=== PATIENT | female | born 1950 ===

== ENCOUNTER → 2018-08-05 14:54 | Outpatient (CLI) | payer OTHER, SELFPAY ==
--- NOTE | 2018-08-05 | DI.MG.S_ITS ---
BILATERAL DIGITAL SCREENING MAMMOGRAM 3D/2D WITH CAD: 08/05/2018 CLINICAL: Routine screening. Comparison is made to exams dated: 03/06/2013 mammogram, 03/09/2010 mammogram, and 08/13/2008 mammogram - [facility]. The tissue of both breasts is heterogeneously dense. This may lower the sensitivity of mammography. Current study was also evaluated with a Computer Aided Detection (CAD) system. No significant masses, calcifications, or other findings are seen in either breast. There has been no significant interval change. IMPRESSION: NEGATIVE There is no mammographic evidence of malignancy. A 1 year screening mammogram is recommended. This exam was interpreted at Station ID: [id number]. NOTE: For mammograms, a report in lay terms will be sent to the patient. Approximately 15% of breast malignancies will not be visualized mammographically. In the management of a palpable breast mass, a negative mammogram must not discourage biopsy of a clinically suspicious lesion. Electronically Signed By: Donita aguayo/sae:08/05/2018 16:03:06 letter sent: Normal Exam ACR BI-RADS Category 1: Negative 3341F
== END ==
PROVIDERS: Family Provider Internal Medicine; PCP Internal Medicine; Visit Provider Internal Medicine
DX: Z12.31 Encounter for screening mammogram for malignant neoplasm of breast (principal)
CPT/HCPCS: 77063; 77067

== ENCOUNTER → 2018-08-27 10:48 | Outpatient (CLI) | payer OTHER, SELFPAY ==
[2018-08-27 12:14] LABS: Add Manual Diff / Slide Review NO; Basophils Percent Auto 1.2 % (0-2); Eosinophils Percent Auto 4.5 % (2-4); Hematocrit 38.5 % (36-46); Hemoglobin 12.8 g/dL (12.0-16.0); Lymphocytes Percent Auto 30.3 % (25-40); Mean Corpuscular HGB Conc 33.2 % (30-36); Mean Corpuscular Hemoglobin 28.8 PG (26-34); Mean Corpuscular Volume 86.6 fL (80-100); Monocytes Percent Auto 8.2 % (3-14); Neutrophils Absolute Auto 1800 /uL (3000-5900); Neutrophils Percent Auto 55.8 % (50-75); Platelet Count 187 X10^3/uL (150-400); Red Blood Cell Count 4.45 X10^6/uL (4.0-5.2); Red Cell Distribution Width 14.8 % (11.6-14.8); White Blood Cell Count 3.2 X10^3/uL (4.5-11.0)
[2018-08-27 12:26] LABS: Alanine Aminotransferase 32 IU/L (9-52); Aspartate Aminotransferase 28 IU/L (14-36); Cholesterol 182 mg/dL (140-199); HDL Cholesterol 80 mg/dL (40-60); LDL Cholesterol Calculated 89 mg/dL (<100); Triglycerides 63 mg/dL (35-150)
[2018-08-27 12:28] LABS: C-Reactive Protein Quant < 0.5 mg/dL (<1.0); Rheumatoid Factor < 8.6 IU/mL (<12.0)
[2018-08-27 12:42] LABS: Erythrocyte Sedimentation Rate 7 MM/HR (0-20)
[2018-09-03 23:05] LABS: ANA Screen NEGATIVE (Negative); DNA Antibody Crithidia IFA NEGATIVE (Negative); Rheumatoid Factor <14 IU/mL; Sjogren Antiboday SS-A <1.0 NEG AI (<1.0 NEGATIVE); Sjogren Antiboday SS-B <1.0 NEG AI (<1.0 NEGATIVE); Sm Antibody <1.0 NEG AI (<1.0 NEGATIVE); Sm/RNP Antibody <1.0 NEG AI (<1.0 NEGATIVE)
== END ==
PROVIDERS: Family Provider Internal Medicine; PCP Internal Medicine; Visit Provider Internal Medicine
DX: M25.50 Pain in unspecified joint (principal); E78.5 Hyperlipidemia, unspecified
CPT/HCPCS: 36415; 80061; 84450; 84460; 85025; 85651; 86038; 86140; 86430

== ENCOUNTER → 2018-09-23 08:37 | Outpatient (CLI) | payer OTHER, SELFPAY | PROVIDERS: Family Provider Internal Medicine; PCP Internal Medicine; Visit Provider Specialist | DX: N90.89 Other specified noninflammatory disorders of vulva and perineum (principal) | CPT/HCPCS: 87255 ==

== ENCOUNTER → 2018-10-11 11:11 | Outpatient (CLI) | payer OTHER, SELFPAY ==
--- NOTE | 2018-10-11 | DI.CT.S_ITS ---
PROCEDURE: CT ABDOMEN W CON INDICATIONS: Epigastric and right sided upper abdominal and flank pain TECHNIQUE: After the administration of intravenous contrast, 5 mm thick sections acquired from the diaphragm to the iliac crests. 5 mm coronal and sagittal reformats were performed. For radiation dose reduction, the following was used: automated exposure control, adjustment of mA and/or kV according to patient size. COMPARISON: None. FINDINGS: Image quality: Excellent. Lung bases: Lung bases are clear. Heart size is normal. There is a moderate-sized hiatal hernia behind the heart Solid organs: Liver is normal in size and enhancement. Gallbladder appears normal. Biliary system is non dilated. Pancreas enhances normally. Spleen is normal in size and enhancement. No adrenal nodules. Kidneys demonstrate normal size and enhancement, without hydronephrosis. Peritoneum and bowel: Bowel loops demonstrate normal wall thickness and caliber. Note is made of moderate diverticulosis at the hepatic flexure of the colon. There is a mild degree of fluid within the pericolonic mesenteric and retroperitoneal fat in this area consistent with mild or early diverticulitis. No peridiverticular fluid collection to suggest abscess formation is present. A mass lesion in this area is not found. No free fluid or air. Nodes and vessels: No retroperitoneal or mesenteric adenopathy by size criteria. Aorta and inferior vena cava are normal in size. Miscellaneous: No ventral hernias. IMPRESSION: Normal-appearing gallbladder, no hepatic or biliary ductal abnormality is seen. Rather, what appears to be mild right colonic acute diverticulitis is present, with mild pericolonic edema and no abnormal fluid collection at the hepatic flexure of the colon. Colonic diverticulosis in this area is moderate in severity. No alternative etiology for right upper quadrant pain is seen. Incidental note is made of a moderate-sized hiatal hernia behind heart. Dictated by: Doroteo Nayak M.D. on 10/11/2018 at 16:44 Approved by: Doroteo Nayak M.D. on 10/11/2018 at 16:47
== END ==
PROVIDERS: PCP Internal Medicine; Visit Provider Internal Medicine
DX: R10.13 Epigastric pain (principal); R10.11 Right upper quadrant pain; K57.30 Diverticulosis of large intestine without perforation or abscess without bleeding; K44.9 Diaphragmatic hernia without obstruction or gangrene
CPT/HCPCS: 74160; Q9967

== ENCOUNTER 2018-12-25 11:58 | Day surgery (SDC) | payer OTHER, SELFPAY ==
--- NOTE | 2018-12-25 | PATH_ITS ---
[facility] Accession Number: [id number] . 01 Material submitted: . PART A: GE JUNCTION BIOPSY PART B: RECTOSIGMOID POLYP . 01 Clinical history: . A) R/O MIGUEL'S . 02 Diagnosis: A. Gastroesophageal Junction, Biopsy: Squamocolumnar junctional mucosa with mild reactive features of reflux esophagitis. Negative for specialized intestinal metaplasia on alcian blue stain. Negative for fungal organisms on PAS stain. Negative for dysplasia or malignancy. . B. Rectosigmoid Colon, Polyp: Hyperplastic polyp. MRV/12/27/2018 . 02 Electronically signed: . Avinash Wallis MD, PhD, Pathologist NPI- [id number] . 01 Gross description: . Received two formalin-filled containers, both labeled with the patient's name: . A. In a container labeled GE junction, the specimen consists of a 0.1 cm portion of tissue, entirely submitted in cassette A. B. In a container labeled rectosigmoid polyp, the specimen consists of a 0.3 cm portion of tissue, entirely submitted in cassette B. (DC:[id number]) /FRR . 02 Microscopic: . Part A: An AB/PAS stain is performed to evaluate for specialized intestinal metaplasia and is negative for goblet cells. There are no fungal organisms identified. A control stain shows appropriate reactivity. . 02 Pathologist provided ICD-10: K21.0, K62.1 . 02 CPT . 327625, 324736, 999612 Performed at: 01 [facility] [address] [facility], [place], [place] [id number] MD Wolf Boucher MD Phone: [phone] Performed at: 02 [facility] [address] [place] [id number] MD Dolly Allison MD Phone: [phone]
--- NOTE | 2018-12-25 08:20 | PM.HP.1 ---
History of Present Illness Date Patient Seen: 12/25/18 Chief complaint: Colonoscopy/EGD Narrative: 68-year-old female who was seen at our office on November 07, 2018 for follow-up after having a bout of hepatic flexure diverticulitis and having persistent right flank pain. The patient also has a history of heartburn has never undergone an upper endoscopy. Please refer to our office note November 07, 2018 for further details Patient History Surgical History History of knee replacement (Resolved 03/09/15) Family History Father No problems noted. Grandmother No problems noted. Mother Infection Grandfather Heart problem Grandmother Heart problem Family/Other Surgical complication Family/Other Cancer Family/Other Cancer Family/Other Cancer Family/Other No problems noted. Social History household members: spouse Smoking Status: Never smoker Family & Social History Family History Father No problems noted. Grandmother No problems noted. Mother Infection Grandfather Heart problem Grandmother Heart problem Family/Other Surgical complication Family/Other Cancer Family/Other Cancer Family/Other Cancer Family/Other No problems noted. Tobacco & Substance use: Smoking Status Never smoker Meds Home Medications Medication Instructions Recorded Confirmed Type [CALCIUM] Q DAY #0 04/28/13 09/23/18 History acyclovir [Zovirax] 200 mg PO SEE INSTRUCTIONS #25 cap 12/28/17 12/25/18 Rx atorvastatin 20 mg tablet 20 mg PO DAILY 05/09/18 12/25/18 History estradiol vaginal pearls 25 mcg VAG 2XW #10 05/09/18 09/23/18 Rx valacyclovir 500 mg tablet 500 mg PO BID #6 tab 10/07/18 Rx Allergies Allergy/AdvReac Type Severity Reaction Status Date / Time cephalexin [From KEFLEX] Allergy Unknown vomit Verified 12/25/18 12:20 Sulfa (Sulfonamide Allergy Unknown Rash Verified 12/25/18 12:20 Antibiotics) [SULFA (SULFONAMIDE ANTIBIOTICS)] Exam Narrative Exam Narrative: General: Patient is obese, not in apparent distress Cardiovascular: Regular rate and rhythm, no murmurs, rubs, or gallops; no evidence of edema; no palpable abdominal aortic aneurysm Gastrointestinal: Normoactive bowel sounds, soft, nontender, nondistended, no rebound tenderness, no hepatosplenomegaly, no evidence of hernia Assessment & Plan Assessment & Plan narrative: 68-year-old female with a history of heartburn here for upper endoscopy and right flank pain after having a bout of diverticulitis who is here for further evaluation by means of colonoscopy Regarding the procedure(s), the risks and potential complications, benefits, and alternatives (including not doing the procedure) were discussed with the patient. The risks include but are not limited to bleeding, splenic injury, infection, perforation which may require surgical intervention, missed lesions, and adverse reactions to sedative medicines. After a question and answer period, the patient agreed to proceed with the procedure(s) and gives informed consent.
[2018-12-25 12:22] VITALS: BP 127/78; PULSE 70; RESP 16; TEMP 36.4; O2SAT 100
[2018-12-25] MEDS: SODIUM CHLORIDE 0.9% 1,000 ML 70 ML IV (12:49)
--- NOTE | 2018-12-25 12:59 | PM.OP.ENDO ---
Operative Date/Time/Diagnoses Date of procedure: 12/25/18 Procedure Notes Procedure in detail: Surgeon: Jarret Rodriguez MD Procedure: Esophagogastroduodenoscopy with biopsy and colonoscopy with snare polypectomy Preoperative diagnosis: Heartburn, history of diverticulitis Postoperative diagnosis: LA grade A reflux esophagitis, 3 cm hiatal hernia; pandiverticulosis; rectosigmoid polyp status post polypectomy Medications: Conscious sedation using 5 mg IV of Midazolam and 100 mcg IV of Fentanyl for EGD; 6 mg IV of Midazolam and 150 mcg IV of Fentanyl (total for both procedures) Preanesthesia Assessment An H and P was performed/updated and the Px?s ASA class is 2. The procedure was discussed in detail with the patient. The potential risks and complications including infection, bleeding, missed lesions, perforation, need for surgery in case of perforation, prolonged hospital stay, and were explained. A brief question and answer period was allotted and once all questions were answered, informed consent was obtained. The patient was brought back to the procedure room and placed on standard monitoring. The patient?s vital signs were monitored continuously throughout the entire procedure. Prior to starting, a timeout was performed to confirm the patient?s identity, allergies, medications, and procedure. Procedure in detail The patient was placed in left lateral decubitus position and a bite block was inserted. The tip of the upper endoscope was placed into the mouth and advanced without difficulty under direct visualization into the esophagus. Esophagus: There is note of LA grade A reflux esophagitis. A biopsy was taken to rule out any Pugh's esophagus and there was self limited minimal bleeding after biopsy Stomach: A 3 cm hiatal hernia was seen on retroflexion; the stomach otherwise appeared normal Duodenum: The visualized mucosa appeared normal up to the 2nd portion of the duodenum After the upper endoscopy, preparations were made for the colonoscopy. Once adequate sedation was obtained a BRYON was performed. The digital rectal examination did not reveal any palpable lesions. The tip of the colonoscope was placed in the anal canal and advanced without difficulty all the way to the cecum which was identified by the appendiceal orifice and the ileocecal valve. There is note of multiple medium-sized diverticula throughout the entire colon. The largest concentration was in the sigmoid colon. In the rectosigmoid colon there was note of a 4 mm sessile polyp which was removed by means of cold snare. Resection and retrieval were complete with minimal bleeding. Retroflexion was performed in the rectum which revealed no abnormalities The patient tolerated the procedure well and will be brought back to the recovery area to be discharged once criteria are met. The prep was judged to be good/excellent and adequate to identify polyps less than 5 mm. The withdrawal time was 7 min. The total physician intraservice time was 24 min. Complications There were no complications and estimated blood loss was minimal. Recommendations Resume previous diet Anti-reflux measures at all times Continue outpatient medications Follow-up pathology results Repeat colonoscopy in 5 or 10 years depending on pathology results Follow-up at our office with Ioana Shea in 1-2 months An emergency contact number was given to the patient for any complications related to the procedure
--- NOTE | 2018-12-25 13:01 | SUR.OPER ---
GLASSES IN LABELED BAG TO PACU WITH PATIENT.
[2018-12-25] MEDS: fentaNYL 250 MCG/5 ML INJ IV (13:15)
[2018-12-25] MEDS: MIDAZOLAM 5 MG/5 ML VIAL IV (13:15)
[2018-12-25 13:27] VITALS: BP 108/66; PULSE 64; RESP 14; O2SAT 96
--- NOTE | 2018-12-25 13:27 | PM.DS.1 ---
History of Present Illness Chief complaint: Colonoscopy/EGD Narrative: 68-year-old female who was seen at our office on November 07, 2018 for follow-up after having a bout of hepatic flexure diverticulitis and having persistent right flank pain. The patient also has a history of heartburn has never undergone an upper endoscopy. Please refer to our office note November 07, 2018 for further details Discharge Providers Discharge Date: 12/25/18 Primary care physician: Enriqueta Espinal MD Discharge provider: Jarret Rodriguez MD Exam Vital Signs (past 8 hours): - 12/25/18 12:22 Temperature 97.6 F Pulse Rate 70 Respiratory Rate 16 Blood Pressure 127/78 Pulse Oximetry 100 Oxygen Delivery Method Room Air Narrative Exam Narrative: General: Patient is obese, not in apparent distress Cardiovascular: Regular rate and rhythm, no murmurs, rubs, or gallops; no evidence of edema; no palpable abdominal aortic aneurysm Gastrointestinal: Normoactive bowel sounds, soft, nontender, nondistended, no rebound tenderness, no hepatosplenomegaly, no evidence of hernia Discharge Plan Discharge Plan Patient Disposition: Home Discharge Med Rec/Prescriptions Prescriptions: Continued [CALCIUM] Q DAY Qty: 0 RF: 0 acyclovir [Zovirax] 200 MG capsule 200 mg PO SEE INSTRUCTIONS Qty: 25 RF: 3 valacyclovir 500 mg tablet 500 mg PO BID Qty: 6 RF: 3 atorvastatin 20 mg tablet 20 mg PO DAILY RF: 0 estradiol vaginal pearls 25 mcg VAG 2XW Qty: 10 RF: 0 Follow up/Referrals: Enriqueta Espinal MD [Primary Care Provider] - Discharge Orders: Discharge (Order); Ordered 12/25/18 Ordered By: Jarret Rodriguez Provider Discharge Instructions Diet: Diet as Tolerated Visit Report/Discharge Packet Stand Alone Forms: Colonoscopy Result: [facility], EGD Result: [facility] Discharge Data Primary Care Provider: Enriqueta Espinal Attending Provider: Jarret Rodriguez
[2018-12-25 13:32] VITALS: BP 107/66; PULSE 63; RESP 13; O2SAT 98
[2018-12-25 13:38] VITALS: BP 114/73; PULSE 65; RESP 14; O2SAT 98
[2018-12-25 13:46] VITALS: BP 116/72; PULSE 72; RESP 15; TEMP 36.3; O2SAT 97
[2018-12-25 13:47] VITALS: BP 116/72; PULSE 72; RESP 15; TEMP 36.3; O2SAT 97
--- NOTE | 2018-12-25 14:08 | SUR.PHASEII ---
stable phase 2 pt dressed when ready and left when ready and in stable condition.
== END 2018-12-25 14:00 | disposition home or self-care (01) ==
PROVIDERS: PCP Internal Medicine; Visit Provider Internal Medicine Gastroenterology
PROC: 0DJ08ZZ Inspection of Upper Intestinal Tract, Via Natural or Artificial Opening Endoscopic (ICD-10-PCS; CPT 43235; 2018-12-25 13:00)
PROC: 0DJD8ZZ Inspection of Lower Intestinal Tract, Via Natural or Artificial Opening Endoscopic (ICD-10-PCS; CPT 45378; 2018-12-25 13:00)
DX: Z87.19 Personal history of other diseases of the digestive system (principal); R12 Heartburn; K21.0 Gastro-esophageal reflux disease with esophagitis; K44.9 Diaphragmatic hernia without obstruction or gangrene; D12.8 Benign neoplasm of rectum; K57.30 Diverticulosis of large intestine without perforation or abscess without bleeding; K62.1 Rectal polyp
CPT/HCPCS: 45385; 43239; J2250; J3010

== ENCOUNTER → 2019-01-24 16:47 | Outpatient (CLI) | payer OTHER, SELFPAY | PROVIDERS: PCP Internal Medicine; Visit Provider Specialist | DX: R30.0 Dysuria (principal) | CPT/HCPCS: 87077; 87086 ==

== ENCOUNTER → 2019-09-11 11:53 | Outpatient (CLI) | payer OTHER, SELFPAY ==
[2019-09-11 13:09] LABS: Alanine Aminotransferase 15 IU/L (<35); Albumin 4.4 g/dL (3.5-5.0); Albumin Globulin Ratio 1.6 (1.0-2.8); Alkaline Phosphatase 73 U/L (38-126); Aspartate Aminotransferase 26 IU/L (14-36); BUN Creatinine Ratio 21.4 (6-22); Bilirubin Total 0.6 mg/dL (0.2-1.3); Blood Urea Nitrogen 15 mg/dL (7-17); Calcium 8.9 mg/dL (8.4-10.2); Carbon Dioxide 31 mmol/L (22-32); Chloride 102 mmol/L (98-107); Cholesterol 217 mg/dL (140-199); Estimated Glomerular Filt Rate > 60.0 mL/min (>60); Globulin 2.8 g/dL (1.7-4.1); Glucose 87 mg/dL (80-110); HDL Cholesterol 70 mg/dL (40-60); HEMOLYSIS < 15 (0-50); LDL Cholesterol Calculated 135 mg/dL (<100); Potassium 3.9 mmol/L (3.4-5.1); Sodium 139 mmol/L (137-145); Total Protein 7.2 g/dL (6.3-8.2); Triglycerides 61 mg/dL (35-150)
[2019-09-11 15:34] LABS: Vitamin D 25 Hydroxy (D3) 27.9 ng/mL (30.0-100.0)
== END ==
PROVIDERS: PCP Internal Medicine; Visit Provider Internal Medicine
DX: E78.5 Hyperlipidemia, unspecified (principal); M85.80 Other specified disorders of bone density and structure, unspecified site; I10 Essential (primary) hypertension
CPT/HCPCS: 36415; 80053; 80061; 82306

== ENCOUNTER → 2019-09-16 18:57 | Outpatient (ROUT) | payer OTHER, SELFPAY | PROVIDERS: PCP Internal Medicine; Visit Provider Internal Medicine | DX: R35.0 Frequency of micturition (principal) | CPT/HCPCS: 87077; 87086; 87186 ==

== ENCOUNTER → 2019-11-06 12:44 | Outpatient (CLI) | payer OTHER, SELFPAY | PROVIDERS: PCP Internal Medicine; Visit Provider Internal Medicine | DX: M85.851 Other specified disorders of bone density and structure, right thigh (principal); Z78.0 Asymptomatic menopausal state; Z87.891 Personal history of nicotine dependence | CPT/HCPCS: 77080 ==

== ENCOUNTER → 2020-04-28 14:20 | Outpatient (CLI) | payer OTHER, SELFPAY | PROVIDERS: PCP Internal Medicine; Visit Provider Specialist | DX: R39.198 Other difficulties with micturition (principal) | CPT/HCPCS: 87086 ==

== ENCOUNTER → 2020-05-20 11:56 | Outpatient (CLI) | payer OTHER, SELFPAY ==
[2020-05-20 13:05] LABS: Alanine Aminotransferase 15 IU/L (<35); Aspartate Aminotransferase 28 IU/L (14-36); Cholesterol 174 mg/dL (140-199); HDL Cholesterol 77 mg/dL (40-60); LDL Cholesterol Calculated 87 mg/dL (<100); Triglycerides 48 mg/dL (35-150)
== END ==
PROVIDERS: PCP Internal Medicine; Referring Provider Internal Medicine; Visit Provider Internal Medicine
DX: E78.5 Hyperlipidemia, unspecified (principal)
CPT/HCPCS: 36415; 80061; 84450; 84460

== ENCOUNTER → 2020-06-10 19:47 | Outpatient (ROUT) | payer OTHER, SELFPAY | PROVIDERS: PCP Internal Medicine; Visit Provider Physician Assistant | DX: R35.0 Frequency of micturition (principal) | CPT/HCPCS: 87077; 87086; 87186 ==

== ENCOUNTER → 2020-11-16 12:15 | Outpatient (CLI) | payer OTHER, SELFPAY ==
--- NOTE | 2020-11-16 | DI.MG.S_ITS ---
BILATERAL DIGITAL SCREENING MAMMOGRAM 3D/2D WITH CAD: 11/16/2020 CLINICAL: Routine screening. Comparison is made to exams dated: 08/05/2018 mammogram - [facility] and 03/06/2013 mammogram - [facility]. The tissue of both breasts is heterogeneously dense. This may lower the sensitivity of mammography. Current study was also evaluated with a Computer Aided Detection (CAD) system. There are benign vascular calcifications in the left breast. No significant masses, calcifications, or other findings are seen in either breast. There has been no significant interval change. IMPRESSION: BENIGN There is no mammographic evidence of malignancy. A 1 year screening mammogram is recommended. This exam was interpreted at Station ID: [id number]. NOTE: For mammograms, a report in lay terms will be sent to the patient. Approximately 15% of breast malignancies will not be visualized mammographically. In the management of a palpable breast mass, a negative mammogram must not discourage biopsy of a clinically suspicious lesion. Electronically Signed By: Sherly huerta/sae:11/16/2020 17:01:11 letter sent: Normal Exam ACR BI-RADS Category 2: Benign Finding(s) 3342F
== END ==
PROVIDERS: PCP Internal Medicine; Referring Provider Internal Medicine; Visit Provider Internal Medicine
DX: Z12.31 Encounter for screening mammogram for malignant neoplasm of breast (principal)
CPT/HCPCS: 77063; 77067

== ENCOUNTER → 2020-11-22 17:34 | Outpatient (CLI) | payer OTHER, SELFPAY ==
[2020-11-22 19:03] LABS: COVID19 -Nasal RAPID Negative (Negative)
== END ==
PROVIDERS: PCP Internal Medicine; Visit Provider Nurse Practitioner
DX: Z20.822 Contact with and (suspected) exposure to COVID-19 (principal)
CPT/HCPCS: 87635

== ENCOUNTER 2021-08-17 13:45 | Outpatient (RCR) | payer OTHER, SELFPAY ==
--- NOTE | 2021-08-01 12:57 | PT.OIE ---
Current Diagnoses Stress incontinence (female) (male) (08/01/21) Past Surgical History (Last Reviewed 11/22/20 @ 17:45 by ORIANA Alfredo) History of knee replacement (03/09/15) Visit Care Team Role Provider Type Enriqueta Espinal MD Attending Provider Physician Primary Care Provider Referring Provider Specialty: Internal Medicine Address: [address] [place] [address], [facility] Email: [email or web address] Physical Therapy Initial Evaluation PT-OP-A Visit Information Start: 08/01/21 08:18 Freq: Status: Active Protocol: Document 08/01/21 11:47 AMB (Rec: 08/01/21 12:00 AMB [email or web address]) Out-Patient Physical Therapy Visit Information Visit Information Visit Type Initial Evaluation Visit Start Time 10:30 Visit Stop Time 11:15 Total Visit Minutes 45 Visit Number 1 PT-OP-B Current Condition Start: 08/01/21 08:18 Freq: Status: Active Protocol: Document 08/01/21 10:35 AMB (Rec: 08/01/21 10:57 AMB [id number]) Current Condition History of Current Condition Onset Date since age 40 Current Complaints Leaking with sneezing History of Current Condition Bending, sneezing cause leaking. Noticed intercourse being painful. 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 1 vaginal delivery. Denies history of chronic cough and chronic constipation. Prior history of multiple UTIs- 2-3x/year. History of low back pain. Prior Functional Status Baseline Function- ADL's Independent Baseline Function- Mobility Independent Personal Factors Other Personal Factors That May Effect Osteoporosis, B TKA Therapy/Recovery PT-OP-C Subjective Start: 08/01/21 08:18 Freq: Status: Active Protocol: Document 08/01/21 12:02 AMB (Rec: 08/01/21 12:12 AMB [email or web address]) Patient Questionnaires Pelvic Pain and Urgency/Frequency Patient Symptom Scale Pelvic Pain Score 3 PT-OP-I Pelvic Floor Start: 08/01/21 08:18 Freq: Status: Active Protocol: Document 08/01/21 11:47 AMB (Rec: 08/01/21 12:00 AMB [email or web address]) Pelvic Floor Assessment Urine Pelvic Floor Surgery No Urinary Symptoms Pain Leakage Size Medium Leakage Cause Cough,Lifting,Sneeze Leaks Per Day 3/week Voiding Frequency 4-5 hours Nocturia 0 Bowel Bowel Surgery No Other Bowel Symptoms denies constipation Prolapse Prolapse Comments no prolapse visualized Perineal Descent Resting Absent Bearing Absent Contraction Ability Voluntary Contraction Weak Voluntary Relaxation Weak Manual Muscle Testing Left 2 Manual Muscle Testing Right 2 Manual Muscle Testing Anterior 2 Manual Muscle Testing Posterior 1 Muscle Endurance (Seconds) 3 Number of Quick Contractions In 10 4 Seconds PT-OP-T Assessment and Plan Start: 08/01/21 08:18 Freq: Status: Active Protocol: Document 08/01/21 12:02 AMB (Rec: 08/01/21 12:12 AMB [email or web address]) Physical Therapy Assessment Rehab Potential Rehabilitation Potential Good Evaluation Complexity Number of Personal Factors/Comorbidities 1-2 Number of Body Systems Impaired 1-2 Clinical Presentation at Evaluation Stable Impairments Impairments Functional Activities,Strength Goals Two Impairment Pelvic floor strength Short Term Goal (STG) Brenda will contract her pelvic floor muscles for 10 seconds without compensation. STG Duration 4 weeks Alf Goal (LTG) Brenda will contract her pelvic floor muscles in standing for 10 seconds. LTG Duration 8 weeks One Impairment Continence Short Term Goal (STG) Brenda will cough without leaking urine. STG Duration 4 weeks Alf Goal (LTG) Brenda will lift 10# from floor to waist height without leaking. LTG Duration 8 weeks Assessment Summary Assessment Brenda attends physical therapy with a long history of stress urinary incontinence, recent onset dyspareunia, and poor fluid intake. She was able to engage her pelvic floor briefly, but then fatigues quickly. She will benefit from physical therapy to improve her pelvic floor strength and reduce her stress incontinence. Physical Therapy Plan Frequency and Duration Frequency of Treatment 1x/Week Duration of Treatment 8 weeks Plan of Care Start Date 08/01/21 Plan of Care End Date 09/26/21 Therapeutic Interventions Therapeutic Interventions Home Exercise Program,Manual Therapy,Neuromuscular Re- education,Self-Care/Home Management,Therapeutic Activities,Therapeutic Exercises Modalities Biofeedback,Electric Stimulation Next Visit Focus/Plan Next Note Type Treatment Note Next Visit Plan begin with sEMG
--- NOTE | 2021-08-01 12:58 | PT.OPPOC ---
Physical, Occupational & Speech Therapy At [facility] Current Diagnoses Stress incontinence (female) (male) (08/01/21) Visit Care Team Role Provider Type Enriqueta Espinal MD Attending Provider Physician Primary Care Provider Referring Provider Specialty: Internal Medicine Address: [address] [place] [address], [id number] Email: [email or web address] Plan Of Care PT-OP-T Assessment and Plan Start: 08/01/21 08:18 Freq: Status: Active Protocol: Document 08/01/21 12:02 AMB (Rec: 08/01/21 12:12 AMB [email or web address]) Physical Therapy Assessment Rehab Potential Rehabilitation Potential Good Evaluation Complexity Number of Personal Factors/Comorbidities 1-2 Number of Body Systems Impaired 1-2 Clinical Presentation at Evaluation Stable Impairments Impairments Functional Activities,Strength Goals Two Impairment Pelvic floor strength Short Term Goal (STG) Brenda will contract her pelvic floor muscles for 10 seconds without compensation. STG Duration 4 weeks Contact Center Consultant Goal (LTG) Brenda will contract her pelvic floor muscles in standing for 10 seconds. LTG Duration 8 weeks One Impairment Continence Short Term Goal (STG) Brenda will cough without leaking urine. STG Duration 4 weeks Penitentiary Goal (LTG) Brenda will lift 10# from floor to waist height without leaking. LTG Duration 8 weeks Assessment Summary Assessment Brenda attends physical therapy with a long history of stress urinary incontinence, recent onset dyspareunia, and poor fluid intake. She was able to engage her pelvic floor briefly, but then fatigues quickly. She will benefit from physical therapy to improve her pelvic floor strength and reduce her stress incontinence. Physical Therapy Plan Frequency and Duration Frequency of Treatment 1x/Week Duration of Treatment 8 weeks Plan of Care Start Date 08/01/21 Plan of Care End Date 09/26/21 Therapeutic Interventions Therapeutic Interventions Home Exercise Program,Manual Therapy,Neuromuscular Re- education,Self-Care/Home Management,Therapeutic Activities,Therapeutic Exercises Modalities Biofeedback,Electric Stimulation Next Visit Focus/Plan Next Note Type Treatment Note Next Visit Plan begin with sEMG Plan of Care Dates Plan of Care Start Date 08/01/21 Plan of Care End Date 09/26/21 Electronically Signed by: Sarahi Najera, PT 08/01/21 [id number] Please Sign and Return: I have reviewed this Plan of Care and certify that the skilled therapy services above are required to meet the patient?s needs. Physician Signature Date Printed Name and Credentials Clinical Instructor Signature Printed Name and Credentials
--- NOTE | 2021-08-10 14:59 | PT.OTN ---
Current Diagnoses Stress incontinence (female) (male) (08/10/21) Physical Therapy Treatment Note PT-OP-A Visit Information Start: 08/01/21 08:18 Freq: Status: Active Protocol: Document 08/10/21 13:45 AMB (Rec: 08/10/21 14:59 AMB [email or web address]) Out-Patient Physical Therapy Visit Information Visit Information Visit Type Treatment Note Visit Start Time 13:45 Visit Stop Time 14:30 Total Visit Minutes 45 Visit Number 2 PT-OP-B Current Condition Start: 08/01/21 08:18 Freq: Status: Active Protocol: Document 08/01/21 10:35 AMB (Rec: 08/01/21 10:57 AMB [id number]) Current Condition History of Current Condition Onset Date since age 40 Current Complaints Leaking with sneezing History of Current Condition Bending, sneezing cause leaking. Noticed intercourse being painful. 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 1 vaginal delivery. Denies history of chronic cough and chronic contipation. Prior history of multiple UTIs- 2-3x/year. History of low back pain. Prior Functional Status Baseline Function- ADL's Independent Baseline Function- Mobility Independent Personal Factors Other Personal Factors That May Effect Osteoporosis, B TKA Therapy/Recovery PT-OP-C Subjective Start: 08/01/21 08:18 Freq: Status: Active Protocol: Document 08/10/21 13:45 AMB (Rec: 08/10/21 14:59 AMB [email or web address]) OP-PT Subjective Patient Comments Patient Comments Pt reports she has been working on the long holds and it is still challenging to hold more than a few seconds, but quick flicks seem to be ok . PT-OP-I Pelvic Floor Start: 08/01/21 08:18 Freq: Status: Active Protocol: Document 08/01/21 11:47 AMB (Rec: 08/01/21 12:00 AMB [email or web address]) Pelvic Floor Assessment Urine Pelvic Floor Surgery No Urinary Symptoms Pain Leakage Size Medium Leakage Cause Cough,Lifting,Sneeze Leaks Per Day 3/week Voiding Frequency 4-5 hours Nocturia 0 Bowel Bowel Surgery No Other Bowel Symptoms denies constipation Prolapse Prolapse Comments no prolapse visualized Perineal Descent Resting Absent Bearing Absent Contraction Ability Voluntary Contraction Weak Voluntary Relaxation Weak Manual Muscle Testing Left 2 Manual Muscle Testing Right 2 Manual Muscle Testing Anterior 2 Manual Muscle Testing Posterior 1 Muscle Endurance (Seconds) 3 Number of Quick Contractions In 10 4 Seconds PT-OP-Q Treatments Start: 08/01/21 08:18 Freq: Status: Active Protocol: Document 08/10/21 13:45 AMB (Rec: 08/10/21 14:59 AMB [email or web address]) Neuro Re-Education Treatment Other Activities 1 Details sEMG Comments quick flicks and long holds, see assessment section PT-OP-T Assessment and Plan Start: 08/01/21 08:18 Freq: Status: Active Protocol: Document 08/10/21 13:45 AMB (Rec: 08/10/21 14:59 AMB [email or web address]) Physical Therapy Assessment Assessment Summary Assessment Average 8, max 13, 1.8 baseline with sEMG. Pt continues to feel challenged by long holds, but has been working on engaging pelvic floor with the back exercises she is already doing. Physical Therapy Plan Next Visit Focus/Plan Next Note Type Treatment Note Next Visit Plan progress home exercises: roll in roll out, standing, review pf contract with sit to stand
--- NOTE | 2021-08-17 15:38 | PT.OTN ---
Current Diagnoses Stress incontinence (female) (male) (08/17/21) Physical Therapy Treatment Note PT-OP-A Visit Information Start: 08/01/21 08:18 Freq: Status: Active Protocol: Document 08/17/21 13:45 AMB (Rec: 08/17/21 14:32 AMB [id number]) Out-Patient Physical Therapy Visit Information Visit Information Visit Type Treatment Note Visit Start Time 13:45 Visit Stop Time 14:30 Total Visit Minutes 45 Visit Number 3 PT-OP-B Current Condition Start: 08/01/21 08:18 Freq: Status: Active Protocol: Document 08/01/21 10:35 AMB (Rec: 08/01/21 10:57 AMB [id number]) Current Condition History of Current Condition Onset Date since age 40 Current Complaints Leaking with sneezing History of Current Condition Bending, sneezing cause leaking. Noticed intercourse being painful. 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 1 vaginal delivery. Denies history of chronic cough and chronic contipation. Prior history of multiple UTIs- 2-3x/year. History of low back pain. Prior Functional Status Baseline Function- ADL's Independent Baseline Function- Mobility Independent Personal Factors Other Personal Factors That May Effect Osteoporosis, B TKA Therapy/Recovery PT-OP-C Subjective Start: 08/01/21 08:18 Freq: Status: Active Protocol: Document 08/17/21 13:45 AMB (Rec: 08/17/21 14:32 AMB [id number]) OP-PT Subjective Patient Comments Patient Comments Continues to work on long holds PT-OP-I Pelvic Floor Start: 08/01/21 08:18 Freq: Status: Active Protocol: Document 08/01/21 11:47 AMB (Rec: 08/01/21 12:00 AMB [email or web address]) Pelvic Floor Assessment Urine Pelvic Floor Surgery No Urinary Symptoms Pain Leakage Size Medium Leakage Cause Cough,Lifting,Sneeze Leaks Per Day 3/week Voiding Frequency 4-5 hours Nocturia 0 Bowel Bowel Surgery No Other Bowel Symptoms denies constipation Prolapse Prolapse Comments no prolapse visualized Perineal Descent Resting Absent Bearing Absent Contraction Ability Voluntary Contraction Weak Voluntary Relaxation Weak Manual Muscle Testing Left 2 Manual Muscle Testing Right 2 Manual Muscle Testing Anterior 2 Manual Muscle Testing Posterior 1 Muscle Endurance (Seconds) 3 Number of Quick Contractions In 10 4 Seconds PT-OP-Q Treatments Start: 08/01/21 08:18 Freq: Status: Active Protocol: Document 08/17/21 13:45 AMB (Rec: 08/17/21 15:37 AMB [email or web address]) Therapeutic Exercises Sitting Exercises roll in roll out Resistance #2 t band Reps/Minutes 2x10 Standing Exercises 3 Standing Exercise Name quick flicks with different foot positions Comments stride stance, WBOS, NBOS 2 Standing Exercise Name t band ER #2 Reps/Minutes 2x10 1 Standing Exercise Name mini squat with long hold Reps/Minutes 10 PT-OP-T Assessment and Plan Start: 08/01/21 08:18 Freq: Status: Active Protocol: Document 08/17/21 13:45 AMB (Rec: 08/17/21 14:32 AMB [id number]) Physical Therapy Assessment Goals Two Impairment Pelvic floor strength Short Term Goal (STG) Brenda will contract her pelvic floor muscles for 10 seconds without compensation. STG Duration 4 weeks Stemmer Machine Goal (LTG) Brenda will contract her pelvic floor muscles in standing for 10 seconds. LTG Duration 8 weeks One Impairment Continence Short Term Goal (STG) Brenda will cough without leaking urine. STG Duration 4 weeks Stemmer Machine Goal (LTG) Brenda will lift 10# from floor to waist height without leaking. LTG Duration 8 weeks Assessment Summary Assessment Brenda is wanting to go on hold until after she meets with Dr. García. She states she has good understanding of new HEP and was given written handout, but continues to be challenged by long holds. Physical Therapy Plan Next Visit Focus/Plan Next Visit Plan Pt on hold for next month pending urology follow up.
--- NOTE | 2021-09-27 09:28 | PT.OPDS ---
Current Diagnoses Stress incontinence (female) (male) (08/17/21) Visit Care Team Role Provider Type Enriqueta Espinal MD Attending Provider Physician Primary Care Provider Referring Provider Specialty: Internal Medicine Address: [address] [place] [address], [facility] Email: [email or web address] Visit Number Visit Number 3 Discharge Summary PT-OP-B Current Condition Start: 08/01/21 08:18 Freq: Status: Active Protocol: Document 08/01/21 10:35 AMB (Rec: 08/01/21 10:57 AMB [id number]) Current Condition History of Current Condition Onset Date since age 40 Current Complaints Leaking with sneezing History of Current Condition Bending, sneezing cause leaking. Noticed intercourse being painful. 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 1 vaginal delivery. Denies history of chronic cough and chronic contipation. Prior history of multiple UTIs- 2-3x/year. History of low back pain. Prior Functional Status Baseline Function- ADL's Independent Baseline Function- Mobility Independent Personal Factors Other Personal Factors That May Effect Osteoporosis, B TKA Therapy/Recovery PT-OP-C Subjective Start: 08/01/21 08:18 Freq: Status: Active Protocol: Document 08/17/21 13:45 AMB (Rec: 08/17/21 14:32 AMB [id number]) OP-PT Subjective Patient Comments Patient Comments Continues to work on long holds PT-OP-I Pelvic Floor Start: 08/01/21 08:18 Freq: Status: Active Protocol: Document 08/01/21 11:47 AMB (Rec: 08/01/21 12:00 AMB [email or web address]) Pelvic Floor Assessment Urine Pelvic Floor Surgery No Urinary Symptoms Pain Leakage Size Medium Leakage Cause Cough,Lifting,Sneeze Leaks Per Day 3/week Voiding Frequency 4-5 hours Nocturia 0 Bowel Bowel Surgery No Other Bowel Symptoms denies constipation Prolapse Prolapse Comments no prolapse visualized Perineal Descent Resting Absent Bearing Absent Contraction Ability Voluntary Contraction Weak Voluntary Relaxation Weak Manual Muscle Testing Left 2 Manual Muscle Testing Right 2 Manual Muscle Testing Anterior 2 Manual Muscle Testing Posterior 1 Muscle Endurance (Seconds) 3 Number of Quick Contractions In 10 4 Seconds PT-OP-T Assessment and Plan Start: 08/01/21 08:18 Freq: Status: Active Protocol: Document 09/27/21 09:25 AMB (Rec: 09/27/21 09:28 AMB [id number]) Physical Therapy Assessment Goals Two Impairment Pelvic floor strength Short Term Goal (STG) Brenda will contract her pelvic floor muscles for 10 seconds without compensation. STG Duration 4 weeks Cyber Security Specialist Goal (LTG) Brenda will contract her pelvic floor muscles in standing for 10 seconds. LTG Duration 8 weeks One Impairment Continence Short Term Goal (STG) Brenda will cough without leaking urine. STG Duration 4 weeks [facility] Goal (LTG) Brenda will lift 10# from floor to waist height without leaking. LTG Duration 8 weeks Assessment Summary Assessment At last visit on August 17: Brenda is wanting to go on hold until after she meets with Dr. García. She states she has good understanding of new HEP and was given written handout, but continues to be challenged by long holds. We have not heard back from her in 6 weeks , therefore we will discharge her. Welcome to return to PT later if needed with a new referral. Physical Therapy Plan Discharge Physical Therapy Discharge Reasons No Longer Attending PT
== END 2021-11-08 08:50 ==
LOC: PHYS 13:45
PROVIDERS: PCP Internal Medicine; Referring Provider Internal Medicine; Visit Provider Internal Medicine
DX: N39.3 Stress incontinence (female) (male) (principal)
CPT/HCPCS: 97110; 97112; 97161

== ENCOUNTER → 2021-09-18 12:07 | Outpatient (CLI) | payer OTHER, SELFPAY ==
[2021-09-18 12:31] LABS: COVID19 -Nasal RAPID Negative (Negative)
== END ==
PROVIDERS: PCP Internal Medicine; Referring Provider Nurse Practitioner Family; Visit Provider Nurse Practitioner Family
DX: R05.9 Cough, unspecified (principal); J02.9 Acute pharyngitis, unspecified
CPT/HCPCS: 87635

== ENCOUNTER → 2022-04-18 09:41 | Outpatient (CLI) | payer OTHER, SELFPAY | PROVIDERS: PCP Internal Medicine; Visit Provider Physician Assistant | DX: N39.0 Urinary tract infection, site not specified (principal) | CPT/HCPCS: 87077; 87086; 87186 ==

== ENCOUNTER 2022-04-24 13:15 | Emergency (ER) | payer OTHER, SELFPAY ==
[2022-04-24 13:25] VITALS: BP 161/88; PULSE 85; RESP 16; TEMP 36.8; O2SAT 100; BMI 29.2
--- NOTE | 2022-04-24 13:30 | DI.RAD.S_ITS ---
PROCEDURE: XR ANKLE RT MIN 3V INDICATIONS: fall. Swelling to lateral ankle TECHNIQUE: 3 views of the ankle were acquired. COMPARISON: None. FINDINGS: Bones: Diffuse osteopenia. There are postsurgical changes involving the 1st metatarsal and proximal phalanx of the great toe. No acute fractures or dislocations. Ankle mortise is normally aligned. No suspicious bony lesions. Very small plantar calcaneal enthesophyte. Soft tissues: No tibiotalar joint effusion. Achilles tendon appears normal. Moderate soft tissue swelling overlying the lateral malleolus. IMPRESSION: Moderate lateral malleolar soft tissue swelling without underlying fracture or dislocation. Small plantar calcaneal enthesophyte. If there is persistent clinical concern for occult fracture given adequate mechanism of injury, consider repeat imaging in 10-14 days. Dictated by: Edmond Gresham M.D. on 04/24/2022 at 14:17 Approved by: Edmond Gresham M.D. on 04/24/2022 at 14:20
--- NOTE | 2022-04-24 14:53 | ED_ITS ---
HPI - Extremity Injury (Lower) <ORIANA Houston - Last Filed: 04/24/22 14:57> General Chief Complaint: Extremity Injury, Lower Stated Complaint: Fall- right ankle pain Time Seen by Provider: 04/24/22 14:32 Source: patient Mode of arrival: Ambulatory History of Present Illness HPI Narrative: This is a 71-year-old female presents to the emergency department complaining of right ankle pain after she tripped and fell backwards down two stairs and twisted her right ankle. She has a history of ankle injuries in the past but denies any history of ankle surgery of this ankle. She states that she had great toe surgery years ago and has history of osteopenia but otherwise does not have any surgical history of her ankle. Patient denies any weakness, states she is able to bear weight, has a previous walking boot at home and brought it with her case she needs to wear a boot for immobilization. She denies any sensation changes, denies any open wounds. She has tenderness on lateral aspect of her ankle, mild ecchymosis, states her injury happened this morning approximately 1000 hours. Related Data Home Medications Medication Instructions Recorded Confirmed [CALCIUM] Q DAY ##0 04/28/13 09/18/21 atorvastatin 20 mg tablet 20 mg PO DAILY 05/09/18 09/18/21 Previous Rx's Medication Instructions Recorded Estriol Vaginal Cream 0.5% 0.5 gram vaginal .COMPLEX #30 grams 11/03/19 estradiol vaginal pearls 25 mcg vaginal 2XW #8 tabs 11/03/19 valacyclovir 500 mg tablet 500 mg PO BID herpes #30 tabs 06/10/21 Allergies Allergy/AdvReac Type Severity Reaction Status Date / Time cephalexin [From KEFLEX] Allergy Unknown vomit Verified 04/24/22 13:29 Sulfa (Sulfonamide Allergy Unknown Rash Verified 04/24/22 13:29 Antibiotics) [SULFA (SULFONAMIDE ANTIBIOTICS)] Review of Systems <ORIANA Houston - Last Filed: 04/24/22 14:57> Review of Systems Narrative: General: denies fever, chills Head/Neck: denies headache, neck pain Eyes: denies visual changes, eye pain Cardio: denies chest pain, palpitations Respiratory: denies shortness of breath, cough MSK: Endorses left ankle pain and swelling, denies muscle weakness or sensation changes Skin: denies rash, itching or wound Neuro: denies numbness, tingling, dizziness Patient History <ORIANA Houston - Last Filed: 04/24/22 14:57> Surgical History History of knee replacement (03/09/15) Family History Father No problems noted. Grandmother No problems noted. Mother Infection Grandfather Heart problem Grandmother Heart problem Family/Other Surgical complication Family/Other Cancer Family/Other Cancer Family/Other Cancer Family/Other No problems noted. Social History household members: spouse Smoking Status: Never smoker Smoking Status: Never smoker alcohol intake frequency: 0-2 drinks per day Substance Use Type: does not use Exam <ORIANA Houston - Last Filed: 04/24/22 14:57> Narrative Exam Narrative: Independently reviewed vitals signs and nursing notes. General: cooperative, comfortable, in no acute distress, well groomed Head: atraumatic, symmetrical facial expressions Neck: supple Eyes: equal round and reactive, EOMI, conjunctiva normal MSK: moves all extremities, neurovascularly intact, no weakness, normal tone, mild ecchymosis on the lateral aspect of her right ankle, no tenderness over ATFL, CFL, Achilles tendon, proximal 5th metatarsal, PT and DP pulses are 2+, mild edema on the lateral aspect of her ankle without tenderness over her lateral malleolus or medial malleolus. Skin: brisk capillary refill, no rash, no erythema Neuro: normal speech and cognition, A&O x3 Psych: mental status is grossly normal, congruent mood, normal affect, pleasant and cooperative Initial Vital Signs Initial Vital Signs: Vital Signs Temperature 98.2 F 04/24/22 13:25 Pulse Rate 85 04/24/22 13:25 Respiratory Rate 16 04/24/22 13:25 Blood Pressure 161/88 H 04/24/22 13:25 Pulse Oximetry 100 04/24/22 13:25 Oxygen Delivery Method 04/24/22 13:25 <Margaret Ricketts DO - Last Filed: 04/26/22 08:12> Initial Vital Signs Initial Vital Signs: Vital Signs Temperature 98.2 F 04/24/22 13:25 Pulse Rate 85 04/24/22 13:25 Respiratory Rate 16 04/24/22 13:25 Blood Pressure 161/88 H 04/24/22 13:25 Pulse Oximetry 100 04/24/22 13:25 Oxygen Delivery Method 04/24/22 13:25 Course <ORIANA Houston - Last Filed: 04/24/22 14:57> Orders Ordered: ED Orders 04/24/22 13:30 XR ankle RT min 3V Stat Vital Signs Vital signs: Vital Signs - 8 hr 04/24/22 13:25 Temperature 98.2 F Pulse Rate 85 Respiratory Rate 16 Blood Pressure 161/88 H Pulse Oximetry 100 Oxygen Delivery Method Room Air <Margaret Ricketts DO - Last Filed: 04/26/22 08:12> Orders Ordered: ED Orders 04/24/22 13:30 XR ankle RT min 3V Stat Vital Signs Vital signs: Vital Signs - 8 hr 04/24/22 13:25 Temperature 98.2 F Pulse Rate 85 Respiratory Rate 16 Blood Pressure 161/88 H Pulse Oximetry 100 Oxygen Delivery Method Room Air MDM - Extremity Injury (Lower) <ORIANA Houston - Last Filed: 04/24/22 14:57> Imaging Data Extremity x-ray #1: Radiologist's Impression: PROCEDURE:? XR ANKLE RT MIN 3V ? INDICATIONS:? fall. Swelling to lateral ankle ? TECHNIQUE:? 3 views of the ankle were acquired.? ? COMPARISON:? None. ? FINDINGS:? ? Bones:? Diffuse osteopenia.? There are postsurgical changes involving the 1st metatarsal and proximal phalanx of the great toe.? No acute fractures or dislocations.? Ankle mortise is normally aligned.? No suspicious bony lesions.? Very small plantar calcaneal enthesophyte. ? Soft tissues:? No tibiotalar joint effusion.? Achilles tendon appears normal.? Moderate soft tissue swelling overlying the lateral malleolus. ? ? IMPRESSION:? Moderate lateral malleolar soft tissue swelling without underlying fracture or dislocation. ? Small plantar calcaneal enthesophyte. ? If there is persistent clinical concern for occult fracture given adequate mechanism of injury, consider repeat imaging in 10-14 days. ? ? ? Dictated by: Edmond Gresham M.D. on 04/24/2022 at 14:17 ? ? Approved by: Edmond Gresham M.D. on 04/24/2022 at 14:20 ? [facility] Narrative Medical decision making narrative: This is a 71-year-old female presents emergency department with right ankle pain after she twisted falling down two steps and injured her ankle at 1000 hours this morning. Right ankle x-ray shows moderate lateral malleolar soft tissue edema without underlying fracture or dislocation. Small plantar calcaneal enthesophyte and diffuse osteopenia. Ankle mortise is normally aligned. Discussed these findings with the patient, PT and DP pulses are 2+, cap refills brisk, moderate edema and ecchymosis on the lateral aspect of her ankle with good range of motion, no deficits, and no deficits to sensation. Encourage patient to follow-up with orthopedics if this is not heal in the next 2+ weeks. Encouraged her to use the walking boot ( she came with) elevate, ice, ibuprofen and Tylenol as needed for her pain and to reduce activity and let pain be her guide. She is given contact information for [facility]. Patient is appropriate and amenable to discharge home. Vital signs are stable on repeat examination is unremarkable. Patient has been informed of results. Patient has been given strict return to ER precautions for any new or worsening symptoms. Patient understands to follow up closely with outpatient providers as instructed. Patient understands plan and agrees to discharge home. All questions and concerns answered at this time. Discharge Plan Departure Patient Disposition: Home Clinical Impression: Ankle sprain and strain Instructions: Ankle Sprain, How to Apply an Elastic Wrap on Ankle Activity Restrictions/Additional Instructions: *You have been diagnosed with a right ankle sprain. Your x-ray shows normal alignment, soft tissue swelling on the lateral aspect of your ankle and no acute fractures or dislocations. Please wear your boot while you are ambulatory. Please ice it for 20 minutes 3-4 times daily for the next 2-3 days, elevate it frequently and as much as possible to reduce swelling. You can try topical Voltaren gel in addition to ibuprofen and Tylenol as needed for your pain and swelling. Please follow-up with [facility] if this is not heal after 1- 2 weeks of doing the above therapies. *What to do: *Please continue to take your regular medications as directed. [ ] New medication prescriptions sent to your pharmacy: [ ] [ ] New medication written as a paper prescription [x ] No new medications given *Please follow up with your primary care provider in 2-3 days, call for an ap pointment. Let them know you were seen in the Emergency Department and that we asked that you be seen for follow-up. We will electronically transmit a record of today's note if your PCP is in our system *If you do not have a primary care provider please contact [phone] to establish care with one of the [facility] primary care providers. *Return to Emergency Department if you should have any new, worsening or concerning symptoms, such as [fever greater than 101F, chills, worsening pain, persistent vomiting or other bothersome symptoms] Prescriptions: No Action [CALCIUM] Q DAY Qty: 0 estradiol vaginal pearls 25 mcg VAG 2XW Qty: 8 11RF Rx Instructions: insert 25 mcg (1 shelly) vaginally twice weekly Estriol Vaginal Cream 0.5% 0.5 gram vaginal .COMPLEX Qty: 30 11RF Rx Instructions: Apply 0.5 gm to vagina twice weekly thereafter. valacyclovir 500 mg tablet 500 mg PO BID Qty: 30 2RF Rx Instructions: Take 1 twice a day for 3 days for outbreaks atorvastatin 20 mg tablet 20 mg PO DAILY Referrals: [facility] [Provider Group] Enriqueta Espinal MD [Primary Care Provider] - Visit Report Forms: Patient Portal/API <Margaret Ricketts DO - Last Filed: 04/26/22 08:12> Cosign ED Attending Claudyature Attestation: I was immediately available in the department for consultation. Documentation has been reviewed. I agree with assessment and plan.
--- NOTE | 2022-04-24 15:01 | PC.NURSE ---
Pt has her own home ortho boot. Assessed by WATCHMAKING TEACHER in waiting area without RN involvement.
--- NOTE | 2022-04-24 15:02 | PC.NURSE ---
Assessed by TEST ENG without RN involvement
== END 2022-04-24 15:04 | disposition home or self-care (01) ==
PROVIDERS: Emergency Provider Nurse Practitioner Critical Care Medicine; PCP Internal Medicine
DX: S93.401A Sprain of unspecified ligament of right ankle, initial encounter (principal); S96.911A Strain of unspecified muscle and tendon at ankle and foot level, right foot, initial encounter; X50.1XXA Overexertion from prolonged static or awkward postures, initial encounter
CPT/HCPCS: 73610; 99281; 99283

== ENCOUNTER → 2022-05-18 08:46 | Outpatient (CLI) | payer OTHER, SELFPAY ==
--- NOTE | 2022-05-18 | DI.CT.S_ITS ---
PROCEDURE: CT CERVICAL SPINE WO CON INDICATIONS: FALL/HEADACHE/BILATERAL NECK PAIN/MUSCLE SPASM TECHNIQUE: Noncontrast 3 mm thick sections acquired from the skull base to the T4 level. Sagittal and coronal reformats were then constructed. Oblique axial images were also reformatted through the disc levels. For radiation dose reduction, the following was used: automated exposure control, adjustment of mA and/or kV according to patient size. COMPARISON: None. FINDINGS: Image quality: Excellent. Bones: No fractures or dislocations. Visualized superior ribs are intact. Reversal of the normal cervical lordosis is seen, with the apex at the C3-C4 level. Grade 1 C3-C4 anterolisthesis is seen. Minimal retrolisthesis is seen at C5-C6. Focal degenerative change is seen involving the C1-C2 interface anteriorly. At C3-C4, there is moderate disc space narrowing. Moderate to severe disc space narrowing is seen at C4-C5, C5-C6, C6-C7, and C7-T1. Endplate irregularity and sclerosis are seen, which are worst at C4-C5. Soft tissues: Prevertebral soft tissues are normal in thickness. No paravertebral hematomas. No apical pneumothoraces. IMPRESSION: Multiple levels of relatively prominent cervical spine degenerative change can be seen. No acute fracture is seen. If it would be helpful for clinical management decision making, please consider a dedicated cervical spine MRI for further evaluation (assuming that there is no contraindication). Dictated by: Javier Gaines M.D. on 05/18/2022 at 8:56 Approved by: Javier Gaines M.D. on 05/18/2022 at 8:58
== END ==
PROVIDERS: PCP Internal Medicine; Referring Provider Internal Medicine; Visit Provider Internal Medicine
DX: M47.812 Spondylosis without myelopathy or radiculopathy, cervical region (principal); M54.2 Cervicalgia; R51.9 Headache, unspecified; M62.838 Other muscle spasm
CPT/HCPCS: 72125

== ENCOUNTER 2022-11-10 10:02 | Emergency (ER) | payer MEDICARE, SELFPAY ==
[2022-11-10 10:10] VITALS: BP 154/85; PULSE 93; RESP 16; TEMP 36.1; O2SAT 100; BMI 27.4
--- NOTE | 2022-11-10 11:26 | ED.GENADULT ---
HPI - General Adult General Chief complaint: Abdominal Pain Stated complaint: Lower Lt Abd Pain Time Seen by Provider: 11/10/22 10:43 Source: patient Mode of arrival: Ambulatory Limitations: no limitations History of Present Illness HPI narrative: Patient is a 72-year-old female. Known history of diverticulosis. No prior history of diverticulitis here for evaluation of left sided abdominal discomfort. States it started last evening has improved somewhat since then but still somewhat tender to palpation. No nausea vomiting. No fevers. No urinary symptoms. No change in bowel habits. No skin changes. She was told by her insurance company that if her symptoms not improve that she should come in to be evaluated. Related Data Home Medications Medication Instructions Recorded Confirmed [CALCIUM] Q DAY ##0 04/28/13 09/18/21 atorvastatin 20 mg tablet 20 mg PO DAILY 05/09/18 09/18/21 Previous Rx's Medication Instructions Recorded Estriol Vaginal Cream 0.5% 0.5 gram vaginal .COMPLEX #30 grams 11/03/19 estradiol vaginal pearls 25 mcg vaginal 2XW #8 tabs 11/03/19 valacyclovir 500 mg tablet See Rx Instructions .Route 11/08/22 .COMPLEX #30 tabs Allergies Allergy/AdvReac Type Severity Reaction Status Date / Time cephalexin [From KEFLEX] Allergy Unknown vomit Verified 11/10/22 12:06 Sulfa (Sulfonamide Allergy Unknown Rash Verified 11/10/22 12:06 Antibiotics) [SULFA (SULFONAMIDE ANTIBIOTICS)] Review of Systems Gastrointestinal Gastrointestinal: Reports system reviewed and no additional complaints, except as documented Genitourinary Genitourinary: Reports system reviewed and no additional complaints, except as documented Integumentary/Breasts Skin/Breast: Reports system reviewed and no additional complaints, except as documented Neurologic Neurologic: Reports system reviewed and no additional complaints, except as documented Hematologic/Lymphatic On Anticoagulants: No Patient History Medical History Cough Diverticulosis Urethral caruncle Surgical History History of knee replacement (03/09/15) Family History Father No problems noted. Grandmother No problems noted. Mother Infection Grandfather Heart problem Grandmother Heart problem Family/Other Surgical complication Family/Other Cancer Family/Other Cancer Family/Other Cancer Family/Other No problems noted. Social History household members: spouse Smoking Status: Never smoker Smoking Status: Never smoker alcohol intake frequency: 0-2 drinks per day Substance Use Type: does not use Exam Initial Vital Signs Initial Vital Signs: Vital Signs Temperature 97.0 F L 11/10/22 10:10 Pulse Rate 93 H 11/10/22 10:10 Respiratory Rate 16 11/10/22 10:10 Blood Pressure 154/85 H 11/10/22 10:10 Pulse Oximetry 100 11/10/22 10:10 Oxygen Delivery Method 11/10/22 10:10 HENMT Head: normal to inspection and normocephalic Resp Effort & Inspection: normal respiratory effort Cardio Rate: regular rate GI Inspection: normal to inspection Palpation: soft, No firm and tender (Left-sided tenderness) Back/Spine/Pelvis Back: No CVA tenderness Skin General: no rashes or lesions noted Neuro General: patient alert, patient awake and moves all extremities Speech: speech normal Extrem General: normal to inspection and capillary refill normal Psych Appearance: grossly normal and well kempt Course Orders Ordered: ED Orders 11/10/22 11:31 CT abdomen pelvis w con Stat 11/10/22 12:00 Complete Blood Count AUTO DIFF Stat Comprehensive Metabolic Panel Stat Lipase Stat Prothrombin Time INR Stat Vital Signs Vital signs: Vital Signs - 8 hr 11/10/22 10:10 Temperature 97.0 F L Pulse Rate 93 H Respiratory Rate 16 Blood Pressure 154/85 H Pulse Oximetry 100 Oxygen Delivery Method Room Air Medical Decision Making Lab Data Lab results reviewed: Yes I reviewed the patient's lab results. 11/10/22 12:00 11/10/22 12:00 Labs: Lab Results 11/10/22 11/10/22 11/10/22 Range/Units 12:00 12:00 12:00 WBC 4.9 (4.5-11.0) X10^3/uL RBC 4.33 (4.0-5.2) X10^6/uL Hgb 12.0 (12.0-16.0) g/dL Hct 36.6 (36-46) % MCV 84.4 (80-100) fL MCH 27.6 (26-34) PG MCHC 32.7 (30-36) % RDW 15.5 H (11.6-14.8) % Plt Count 162 (150-400) X10^3/uL Neut % (Auto) 68.1 (50-75) % Lymph % (Auto) 20.8 L (25-40) % Haines % (Auto) 8.9 (3-14) % Eos % (Auto) 1.1 L (2-4) % Baso % (Auto) 1.1 (0-2) % Neut # (Auto) 3300 (5657-7544) /uL Lymph # (Auto) 1000 L (1885-8618) /uL Haines # (Auto) 400 (0-900) /uL Eos # (Auto) 100 (0-450) /uL Baso # (Auto) 100 (0-100) /uL PT 12.4 (10.1-12.7) SECONDS INR 1.1 (0.9-1.3) Sodium 136 L (137-145) mmol/L Potassium 4.0 (3.4-5.1) mmol/L Chloride 98 (98-107) mmol/L Carbon Dioxide 32 (22-32) mmol/L BUN 16 (7-17) mg/dL Creatinine 0.65 (0.52-1.04) mg/dL Estimated GFR > 60 (>60) mL/min BUN/Creatinine Ratio 24.6 H (6-22) Glucose 86 (80-110) mg/dL Calcium 8.8 (8.4-10.2) mg/dL Total Bilirubin 0.7 (0.2-1.3) mg/dL AST 30 (14-36) IU/L ALT 19 (<35) IU/L Alkaline Phosphatase 89 (38-126) U/L Total Protein 7.3 (6.3-8.2) g/dL Albumin 4.2 (3.5-5.0) g/dL Globulin 3.1 (1.7-4.1) g/dL Albumin/Globulin Ratio 1.4 (1.0-2.8) Lipase 207 (23-300) U/L Urine Dip Bedside Urine Glucose Negative Bedside Urine Bilirubin - Negative Bedside Urine Ketone - Negative Urine Specific Hayti 1.010 Bedside Urine Occult Blood - Negative Bedside Urine pH 7.0 Bedside Urine Protein - Negative Bedside Urine Urobilinogen - Negative Bedside Urine Nitrite - Negative Bedside Urine Leukocytes - Negative Esterase Point of care testing: Urine Dip Bedside Urine Glucose Negative Bedside Urine Bilirubin - Negative Bedside Urine Ketone - Negative Urine Specific Hayti 1.010 Bedside Urine Occult Blood - Negative Bedside Urine pH 7.0 Bedside Urine Protein - Negative Bedside Urine Urobilinogen - Negative Bedside Urine Nitrite - Negative Bedside Urine Leukocytes - Negative Esterase Imaging Data CT scan - abdomen/pelvis: Radiologist's Impression: [address] [address] [address] Scan Report Signed Patient: Brenda Lucero MR#: [id number] : 1950 Acct:[id number] Age/Sex: 72 / F Date of Service: 11/10/22 Loc: ED Accession Number: [id number] ?? Procedure: CT abdomen pelvis w con Ordering Provider: Tristan Roper D.O. PROCEDURE:? CT ABDOMEN PELVIS W CON ? INDICATIONS:? Left lower quadrant abdominal pain ? TECHNIQUE:? After the administration of intravenous contrast, axial sections acquired from the lung bases to the pubic symphysis.? Coronal and sagittal reformats were performed.? For radiation dose reduction, the following was used:? automated exposure control, adjustment of mA and/or kV according to patient size.? ? COMPARISON:? [facility], CT, CT ABDOMEN W CON, 10/11/2018, 12:16. ? FINDINGS:? Image quality:? Excellent.? ? Lung bases:? Unremarkable. Heart:? No significant findings.? Retrocardiac moderate-sized hiatal hernia noted. ? ABDOMEN: Liver:? Unremarkable.? ? Gallbladder:? Unremarkable.? ? Biliary ducts:? Unremarkable.? ? Pancreas:? Unremarkable.? ? Spleen:? Unremarkable.? ? Adrenal Glands:? Unremarkable.? ? Kidneys and Ureters:? Unremarkable.? ? ? Stomach and Bowel:? Stomach, small bowel loops, and colon are unremarkable.? Peritoneum:? No abnormal intraperitoneal fluid.? No free air.? ? Ventral Wall: ? No hernias.? Abdominal Nodes:? No retroperitoneal or mesenteric adenopathy by size criteria.? Vessels:? Aorta and inferior vena cava are normal in size.? ? PELVIS: Pelvic Organs:? Unremarkable.? ? Bladder:? Unremarkable.? ? Pelvic Nodes: No enlarged lymph nodes.? Miscellaneous: No hernias are seen. ? ? Prominent diverticulosis but without definite evidence of acute diverticulitis seen.? What appears to be a normal appendix is seen at the right lower quadrant. ? Bones:? Unremarkable.? IMPRESSION:? Moderate sigmoid diverticulosis, but there is no CT evidence of definite acute diverticulitis.? Source of left lower quadrant abdominal pain is not identified.? What appears to be a partially visualized normal appendix is seen at the right lower quadrant. ? ? Dictated by: Doroteo Nayak M.D. on 11/10/2022 at 13:22 ? ? Approved by: Doroteo Nayak M.D. on 11/10/2022 at 13:26?? MDM Narrative Medical decision making narrative: Workup here in the emergency department to include labs CT scan and exam are all very reassuring. There is no indication for any antibiotics. No indication for an acute abdominal surgical pathology. Low suspicion for pyelo. No signs of kidney stone. I discussed all this with the patient. Discharge patient home. She was comfortable without a definitive etiology/diagnosis. She was given return precautions. She expressed understanding and agreement Discharge Plan Departure Patient Disposition: Home Clinical Impression: Abdominal pain Instructions: DI for Abdominal Pain-Adult Activity Restrictions/Additional Instructions: Your workup here in the emergency department does not show any signs of an infection nor surgical issue. Continue to take all of your medications as directed. Contact your primary doctor for a follow-up. Return to the emergency department for any new or worsening symptoms. Prescriptions: No Action [CALCIUM] Q DAY Qty: 0 estradiol vaginal pearls 25 mcg VAG 2XW Qty: 8 11RF Rx Instructions: insert 25 mcg (1 shelly) vaginally twice weekly Estriol Vaginal Cream 0.5% 0.5 gram vaginal .COMPLEX Qty: 30 11RF Rx Instructions: Apply 0.5 gm to vagina twice weekly thereafter. valacyclovir 500 mg tablet See Rx Instructions .ROUTE .COMPLEX Qty: 30 0RF Dose Instruction: take 1 tablet by mouth twice a day for 3 days for OUTBREAKS Rx Instructions: take 1 tablet by mouth twice a day for 3 days for OUTBREAKS atorvastatin 20 mg tablet 20 mg PO DAILY Referrals: Enriqueta Espinal MD [Primary Care Provider] - Stand Alone Forms: Patient Portal/API
--- NOTE | 2022-11-10 11:31 | DI.CT.S_ITS ---
PROCEDURE: CT ABDOMEN PELVIS W CON INDICATIONS: Left lower quadrant abdominal pain TECHNIQUE: After the administration of intravenous contrast, axial sections acquired from the lung bases to the pubic symphysis. Coronal and sagittal reformats were performed. For radiation dose reduction, the following was used: automated exposure control, adjustment of mA and/or kV according to patient size. COMPARISON: [facility], CT, CT ABDOMEN W CON, 10/11/2018, 12:16. FINDINGS: Image quality: Excellent. Lung bases: Unremarkable. Heart: No significant findings. Retrocardiac moderate-sized hiatal hernia noted. ABDOMEN: Liver: Unremarkable. Gallbladder: Unremarkable. Biliary ducts: Unremarkable. Pancreas: Unremarkable. Spleen: Unremarkable. Adrenal Glands: Unremarkable. Kidneys and Ureters: Unremarkable. Stomach and Bowel: Stomach, small bowel loops, and colon are unremarkable. Peritoneum: No abnormal intraperitoneal fluid. No free air. Ventral Wall: No hernias. Abdominal Nodes: No retroperitoneal or mesenteric adenopathy by size criteria. Vessels: Aorta and inferior vena cava are normal in size. PELVIS: Pelvic Organs: Unremarkable. Bladder: Unremarkable. Pelvic Nodes: No enlarged lymph nodes. Miscellaneous: No hernias are seen. Prominent diverticulosis but without definite evidence of acute diverticulitis seen. What appears to be a normal appendix is seen at the right lower quadrant. Bones: Unremarkable. IMPRESSION: Moderate sigmoid diverticulosis, but there is no CT evidence of definite acute diverticulitis. Source of left lower quadrant abdominal pain is not identified. What appears to be a partially visualized normal appendix is seen at the right lower quadrant. Dictated by: Doroteo Nayak M.D. on 11/10/2022 at 13:22 Approved by: Doroteo Nayak M.D. on 11/10/2022 at 13:26
[2022-11-10 12:18] LABS: Add Manual Diff / Slide Review NO; Basophils Absolute Auto 100 /uL (0-100); Basophils Percent Auto 1.1 % (0-2); Eosinophils Absolute Auto 100 /uL (0-450); Eosinophils Percent Auto 1.1 % (2-4); Hematocrit 36.6 % (36-46); Lymphocytes Absolute Auto 1000 /uL (1100-4500); Lymphocytes Percent Auto 20.8 % (25-40); Mean Corpuscular HGB Conc 32.7 % (30-36); Mean Corpuscular Hemoglobin 27.6 PG (26-34); Mean Corpuscular Volume 84.4 fL (80-100); Monocytes Absolute Auto 400 /uL (0-900); Monocytes Percent Auto 8.9 % (3-14); Neutrophils Absolute Auto 3300 /uL (1500-7000); Neutrophils Percent Auto 68.1 % (50-75); Platelet Count 162 X10^3/uL (150-400); Red Blood Cell Count 4.33 X10^6/uL (4.0-5.2); Red Cell Distribution Width 15.5 % (11.6-14.8); White Blood Cell Count 4.9 X10^3/uL (4.5-11.0)
[2022-11-10 12:24] LABS: INR 1.1 (0.9-1.3); Prothrombin Time 12.4 SECONDS (10.1-12.7)
[2022-11-10 12:30] LABS: Alanine Aminotransferase 19 IU/L (<35); Albumin 4.2 g/dL (3.5-5.0); Albumin Globulin Ratio 1.4 (1.0-2.8); Alkaline Phosphatase 89 U/L (38-126); Aspartate Aminotransferase 30 IU/L (14-36); BUN Creatinine Ratio 24.6 (6-22); Bilirubin Total 0.7 mg/dL (0.2-1.3); Blood Urea Nitrogen 16 mg/dL (7-17); Calcium 8.8 mg/dL (8.4-10.2); Carbon Dioxide 32 mmol/L (22-32); Chloride 98 mmol/L (98-107); Estimated Glomerular Filt Rate > 60 mL/min (>60); Globulin 3.1 g/dL (1.7-4.1); Glucose 86 mg/dL (80-110); HEMOLYSIS < 15 (0-50); Lipase 207 U/L (23-300); Sodium 136 mmol/L (137-145); Total Protein 7.3 g/dL (6.3-8.2)
[2022-11-10 13:38] VITALS: BP 145/81; PULSE 82; O2SAT 100
== END 2022-11-10 13:41 | disposition home or self-care (01) ==
PROVIDERS: Emergency Provider Emergency Medicine; PCP Internal Medicine
DX: R10.32 Left lower quadrant pain (principal)
CPT/HCPCS: 36415; 74177; 80053; 81003; 83690; 85025; 85610; 99284; Q9967

== ENCOUNTER → 2022-12-14 15:49 | Outpatient (CLI) | payer MEDICARE, SELFPAY ==
--- NOTE | 2022-12-14 | DI.MG.S_ITS ---
BILATERAL DIGITAL SCREENING MAMMOGRAM 3D/2D WITH CAD: 12/14/2022 CLINICAL: Routine screening. Comparison is made to exams dated: 11/16/2020 mammogram, 08/05/2018 mammogram - [facility], and 03/06/2013 mammogram - [facility]. Both breasts are heterogeneously dense, which may obscure small masses (category c / 51-75% glandular tissue). Current study was also evaluated with a Computer Aided Detection (CAD) system. There are benign vascular calcifications in both breasts. No significant masses, calcifications, or other findings are seen in either breast. There has been no significant interval change. IMPRESSION: BENIGN There is no mammographic evidence of malignancy. A 1 year screening mammogram is recommended. Based on the Tyrer Cuzick model (a risk assessment model) the patient's lifetime risk is 5.2% and her 10 year risk is 3.9%. According to the ACR, ACS, and NCCN guidelines, an annual breast MRI exam along with mammogram is recommended if the patient's lifetime risk is 20% or greater. This exam was interpreted at Station ID: [id number]. NOTE: For mammograms, a report in lay terms will be sent to the patient. Approximately 15% of breast malignancies will not be visualized mammographically. In the management of a palpable breast mass, a negative mammogram must not discourage biopsy of a clinically suspicious lesion. Electronically Signed By: Donita aguayo/sae:12/15/2022 08:51:15 letter sent: Normal Exam ACR BI-RADS Category 2: Benign Finding(s) 3342F
== END ==
PROVIDERS: PCP Internal Medicine; Referring Provider Internal Medicine; Visit Provider Internal Medicine
DX: Z12.31 Encounter for screening mammogram for malignant neoplasm of breast (principal)
CPT/HCPCS: 77063; 77067

== ENCOUNTER → 2022-12-19 09:37 | Outpatient (CLI) | payer MEDICARE, SELFPAY ==
--- NOTE | 2022-12-19 | DI.ECHO.S_ITS ---
[facility] +---------+ : : [address] [place] : : : : [id number] : : : : Phone: [phone]+ Echocardiogram Report + + :Name: DESMOND OSULLIVAN Study Date: 12/19/2022 Height: 63 in : [facility] ReadingLocation: Weight: 160 lb : : Gender: Female BSA: 1.8 m2 : :: 1950 Age: 72 yrs BP: 128/81 mmHg: :Reason For Study: CARDIAC MURMUR : :Ordering Physician: POLO : :BALDEMAR Performed By: Virginia Araujo : :Referring: BALDEMAR CUELLAR : + + Interpretation Summary The ejection fraction is estimated to be 60-65%. Diastolic function could not be accurately assessed due to contradictory data. The left atrium is severely dilated. The right ventricle is normal in size and function. The right atrium is mildly dilated. There is prolapse of the posterior mitral valve leaflet(s). There is severe mitral regurgitation. There is moderate tricuspid regurgitation. The right ventricular systolic pressure is estimated to be at least 49 mmHg based on an estimated right atrial pressure of 15 mm Hg. Procedure: A two-dimensional transthoracic echocardiogram with color flow and Doppler was performed. The study quality was technically adequate. There is no prior echocardiogram noted for this patient. The patient was in sinus rhythm with heart rates between 73-85 bpm during the exam. Left Ventricle: The left ventricle is normal in size and wall thickness. The ejection fraction is estimated to be 60-65%. Diastolic function could not be accurately assessed due to contradictory data. Right Ventricle: The right ventricle is normal in size and function. Atria: The left atrium is severely dilated. The right atrium is mildly dilated. There is no Doppler evidence for an interatrial shunt. Mitral Valve: There is prolapse of the posterior mitral valve leaflet(s). There is severe mitral regurgitation. The mitral regurgitant jet is eccentrically directed. Aortic Valve: The aortic valve is trileaflet. The aortic valve opens well. There is no aortic valve stenosis. No aortic regurgitation is present. Tricuspid Valve: The tricuspid valve leaflets are thin and pliable. There is moderate tricuspid regurgitation. The right ventricular systolic pressure is estimated to be at least 49 mmHg based on an estimated right atrial pressure of 15 mm Hg. Pulmonic Valve: The pulmonic valve leaflets are thin and pliable; valve motion is normal. There is mild pulmonic regurgitation. Great Vessels: The aortic root is normal size. The dimensions of the ascending aorta are normal. The IVC is dilated (diameter is greater than 2.1 cm) and it collapses less than 50% with a sniff. This suggests a high right atrial pressure of 15 mm Hg. Pericardium/ Pleura There is no pericardial effusion. There is no pleural effusion. MMode/2D Measurements & Calculations LVIDd: 5.7 cm LVOT diam: 2.0 cm LVIDs: 3.9 cm Ao root diam: 3.1 cm FS: 32.8 % asc Aorta Diam: 3.3 cm IVSd: 0.92 cm Ao Arch Diam (Prox Trans): 2.5 cm LVPWd: 0.55 cm LV luo. diameter/BSA (cm/m^2): 3.3 LV sys. diameter/BSA (cm/m^2): 2.2 LA A2 area: 32.1 cm2 RA long axis: 4.9 cm LA A4 area: 32.4 cm2 RA area: 12.3 cm2 LA length (vol): 7.2 cm RA vol: 26.3 ml LA vol: 122.7 ml RA : 15.0 ml/m2 LA vol index: 69.7 ml/m2 IVC diam: 2.7 cm RVD1 (basal): 3.4 cm RVD2 (mid): 2.3 cm TAPSE: 1.8 cm Doppler Measurements & Calculations Ao V2 max: 113.5 cm/sec LVOT Max Kennedy: 71.5 cm/sec Ao V2 mean: 77.5 cm/sec LV V1 max P.0 mmHg Ao max P.2 mmHg LV V1 VTI: 14.3 cm Ao mean P.8 mmHg KEL(I,D): 2.2 cm2 Ao V2 VTI: 20.1 cm KEL(V,D): 1.9 cm2 sev ratio: 0.71 KEL indexed to BSA (cm^2/m^2): 1.2 MV E max kennedy: 121.4 cm/sec TR max kennedy: 292.2 cm/sec MV A max kennedy: 50.1 cm/sec TR max P.1 mmHg MV E/A: 2.4 PA pr(Accel): 25.9 mmHg Med Peak E' Kennedy: 8.1 cm/sec E/E' med: 15.0 Lat Peak E' Kennedy: 9.9 cm/sec E/E' lat: 12.3 E/e' average: 13.6 MV dec time: 0.18 sec MR ERO: 0.43 cm2 MR PISA: 4.2 cm2 SV(LVOT): 43.3 ml MR flow rate: 207.2 cm3/sec MR PISA radius: 0.82 cm Reading Physician:01:11 PM
== END ==
PROVIDERS: PCP Internal Medicine; Referring Provider Internal Medicine; Visit Provider Internal Medicine
DX: R01.1 Cardiac murmur, unspecified (principal); I08.1 Rheumatic disorders of both mitral and tricuspid valves
CPT/HCPCS: 93306

== ENCOUNTER → 2023-02-15 07:24 | Outpatient (CLI) | payer MEDICARE, SELFPAY ==
--- NOTE | 2023-02-15 | DI.NM.S_ITS ---
PROCEDURE: NM EXERCISE TREADMILL NON NUC COMPARISON: None. INDICATIONS: Nonrheumatic mitral (valve) insufficiency FINDINGS: The patient exercised for 6 minutes and 1 second reaching 101% of maximum predicted heart rate. Appropriate BP response to exercise (resting BP 136/92mmHg, max BP 152/90mmHg). No angina and no ST changes during exercise or recovery. Rare PVCs present. IMPRESSION: Low risk, normal treadmill ECG only stress test with fair exercise tolerance (ECTOR -7%). Dictated by: Camilo Heard MD on 02/15/2023 at 17:14 Approved by: Camilo Heard MD on 02/15/2023 at 17:16
== END ==
PROVIDERS: PCP Internal Medicine; Referring Provider Internal Medicine Cardiovascular Disease; Visit Provider Internal Medicine Cardiovascular Disease
DX: I34.0 Nonrheumatic mitral (valve) insufficiency (principal)
CPT/HCPCS: 93017

== ENCOUNTER → 2023-07-11 08:58 | Outpatient (CLI) | payer MEDICARE, SELFPAY ==
[2023-07-11 10:28] LABS: Alanine Aminotransferase 17 IU/L (<35); Albumin 3.8 g/dL (3.5-5.0); Albumin Globulin Ratio 1.4 (1.0-2.8); Alkaline Phosphatase 64 U/L (38-126); Aspartate Aminotransferase 28 IU/L (14-36); BUN Creatinine Ratio 21.1 (6-22); Bilirubin Total 0.5 mg/dL (0.2-1.3); Blood Urea Nitrogen 15 mg/dL (7-17); Calcium 9.4 mg/dL (8.4-10.2); Carbon Dioxide 32 mmol/L (22-32); Chloride 101 mmol/L (98-107); Cholesterol 167 mg/dL (140-199); Estimated Glomerular Filt Rate > 60 mL/min (>60); Globulin 2.7 g/dL (1.7-4.1); Glucose 88 mg/dL (80-110); HDL Cholesterol 83 mg/dL (40-60); HEMOLYSIS < 15 (0-50); LDL Cholesterol Calculated 71 mg/dL (<100); Potassium 4.3 mmol/L (3.4-5.1); Sodium 137 mmol/L (137-145); Total Protein 6.5 g/dL (6.3-8.2); Triglycerides 64 mg/dL (35-150)
== END ==
PROVIDERS: PCP Internal Medicine; Referring Provider Internal Medicine; Visit Provider Internal Medicine
DX: E78.5 Hyperlipidemia, unspecified (principal)
CPT/HCPCS: 36415; 80053; 80061

== ENCOUNTER → 2023-08-29 13:29 | Outpatient (CLI) | payer MEDICARE, SELFPAY ==
[2023-08-29 14:50] LABS: BUN Creatinine Ratio 19.7 (6-22); Blood Urea Nitrogen 14 mg/dL (7-17); Calcium 9.5 mg/dL (8.4-10.2); Carbon Dioxide 31 mmol/L (22-32); Chloride 100 mmol/L (98-107); Estimated Glomerular Filt Rate > 60 mL/min (>60); Glucose 92 mg/dL (80-110); HEMOLYSIS < 15 (0-50); Potassium 4.2 mmol/L (3.4-5.1); Sodium 137 mmol/L (137-145)
[2023-08-29 14:52] LABS: Add Manual Diff / Slide Review NO; Basophils Absolute Auto 0 /uL (0-100); Eosinophils Absolute Auto 100 /uL (0-450); Eosinophils Percent Auto 1.4 % (2-4); Hematocrit 35.9 % (36-46); Hemoglobin 11.8 g/dL (12.0-16.0); Lymphocytes Absolute Auto 900 /uL (1100-4500); Mean Corpuscular HGB Conc 32.9 % (30-36); Mean Corpuscular Hemoglobin 27.8 PG (26-34); Mean Corpuscular Volume 84.6 fL (80-100); Monocytes Absolute Auto 400 /uL (0-900); Monocytes Percent Auto 9.5 % (3-14); Neutrophils Absolute Auto 2500 /uL (1500-7000); Neutrophils Percent Auto 64.1 % (50-75); Platelet Count 162 X10^3/uL (150-400); Red Blood Cell Count 4.25 X10^6/uL (4.0-5.2); Red Cell Distribution Width 14.8 % (11.6-14.8); White Blood Cell Count 3.9 X10^3/uL (4.5-11.0)
== END ==
PROVIDERS: PCP Internal Medicine; Referring Provider Nurse Practitioner Gerontology; Visit Provider Nurse Practitioner Gerontology
DX: I34.0 Nonrheumatic mitral (valve) insufficiency (principal); I07.1 Rheumatic tricuspid insufficiency
CPT/HCPCS: 36415; 80048; 85025

== ENCOUNTER → 2023-11-20 16:03 | Outpatient (CLI) | payer MEDICARE, SELFPAY ==
--- NOTE | 2023-11-20 16:04 | DI.RAD.S_ITS ---
PROCEDURE: XR THORACIC SPINE 3V INDICATIONS: RIB PAIN TECHNIQUE: 3 views of the thoracic spine were acquired. COMPARISON: None. FINDINGS: Bones: No fractures or dislocations. No suspicious bony lesions. 12 pairs of ribs are noted, and appear intact where visualized. Mild degenerative disc changes noted at the thoracic spine. Soft tissues: No paravertebral stripe thickening. IMPRESSION: No thoracic spine acute bony abnormality. Dictated by: Cheryle Shpiley MD, PhD on 11/20/2023 at 16:40 Approved by: Cheryle Shipley MD, PhD on 11/20/2023 at 16:41
--- NOTE | 2023-11-20 16:04 | DI.RAD.S_ITS ---
PROCEDURE: XR LUMBAR SPINE MIN 4V INDICATIONS: BACK PAIN TECHNIQUE: 5 views of the lumbar spine were acquired, including bilateral oblique views. COMPARISON: None. FINDINGS: Bones: Transitional anatomy with 6 lumbar type [id number] vertebral bodies. For purposes of this dictation the 6 lumbar type [id number] vertebral bodies will be designated L1-S1. Mild, approximately 7 millimeters of L2-L3 retrolisthesis. L3 compression fracture of indeterminate age. No suspicious bony lesions. Severe L1-L2 degenerative disc disease. Mild L2-L3, L3-L4, L4-L5 and L5-S1 degenerative disc disease. Mild lower lumbar spine facet arthropathy. Soft tissues: Overlying bowel gas pattern is normal. No suspicious soft tissue calcifications. Oblique images: No pars defects. IMPRESSION: L3 compression fracture of indeterminate age. Grade 1 L2-L3 retrolisthesis. Multilevel degenerative disc disease and facet arthropathy. Dictated by: Cheryle Shipley MD, PhD on 11/20/2023 at 16:41 Approved by: Cheryle Shipley MD, PhD on 11/20/2023 at 16:44
== END ==
PROVIDERS: PCP Internal Medicine; Referring Provider Physical Medicine & Rehabilitation; Visit Provider Physical Medicine & Rehabilitation
DX: M51.36 Other intervertebral disc degeneration, lumbar region (principal); M51.37 Other intervertebral disc degeneration, lumbosacral region; M43.16 Spondylolisthesis, lumbar region; M47.816 Spondylosis without myelopathy or radiculopathy, lumbar region; M48.56XA Collapsed vertebra, not elsewhere classified, lumbar region, initial encounter for fracture; R07.81 Pleurodynia; M54.9 Dorsalgia, unspecified
CPT/HCPCS: 72072; 72110

== ENCOUNTER → 2023-11-24 15:21 | Outpatient (CLI) | payer MEDICARE, SELFPAY ==
--- NOTE | 2023-11-24 15:25 | DI.MRI.S_ITS ---
PROCEDURE: MR THORACIC SPINE WO CON INDICATIONS: Scoliosis L2 fracture TECHNIQUE: Noncontrast sagittal T1 spine echo and T2 fast spin echo, sagittal STIR, and T2 fast spin echo through the thoracic spine. COMPARISON: None. FINDINGS: Image quality: Excellent. Alignment and Curvature: There is mild, approximately 3 millimeters of T12-L1 retrolisthesis and 5 millimeters of L1-L2 retrolisthesis. Convex right curvature of the thoracic spine. Bone Marrow: Marrow is of normal overall signal. No acute vertebral body compression fractures. Spinal Cord: Visualized spinal cord is normal in size and signal. Paraspinous Soft Tissues: No paravertebral masses. Miscellaneous: Moderate degenerative disc changes noted throughout the thoracic spine. Mild facet hypertrophy throughout the thoracic spine. Central T3-T4 and T4-T5 disc protrusions. Left central T7-T8 disc protrusion. No severe central canal narrowing. No severe neural foraminal narrowing. No neural compression. IMPRESSION: Moderate multilevel degenerative disc disease. Mild multilevel facet arthropathy. No severe central canal stenosis. No severe neural foraminal narrowing. No neural compression. Dictated by: Cheryle Shipley MD, PhD on 11/26/2023 at 9:31 Approved by: Cheryle Shipley MD, PhD on 11/26/2023 at 9:34
--- NOTE | 2023-11-24 15:25 | DI.MRI.S_ITS ---
PROCEDURE: MR LUMBAR SPINE WO CON INDICATIONS: Scoliosis L2 fracture TECHNIQUE: Noncontrast sagittal T1 spin echo and T2 fast echo, sagittal STIR, and T2 fast spin echo through the lumbar spine. In cases with scoliosis, additional coronal T2 fast spin echo may be performed. COMPARISON: None. FINDINGS: Image quality: Excellent. Alignment and Curvature: There is 3 millimeters of T12-L1 retrolisthesis. There is 5 millimeters of L1-L2 retrolisthesis. Bone Marrow: Modic type 2 reactive endplate changes noted adjacent to the L5-S1 disc. Loss of height noted in the L2 vertebral body compatible with compression fracture. L2 marrow space signal intensity is normal indicating compression fracture is chronic. L2 compression fracture results and approximately 15% loss of normal superior height. Large Schmorl's node in the superior endplate of the L2 vertebral body. Spinal Cord: Conus medullaris terminates at the L1 level. Visualized cord demonstrates normal signal and size. Paraspinous Soft Tissues: No paravertebral masses. T12-L1: Loss of disc signal and height. Mild, diffuse disc bulge. No central stenosis. No neural foraminal narrowing. No neural compression. L1-L2: Loss of disc signal and mild loss of disc height. Mild, diffuse disc bulge. Mild bilateral facet hypertrophy. No central stenosis. Mild bilateral neural foraminal narrowing. No neural compression. L2-L3: Loss of disc signal. Mild, diffuse disc bulge. Mild bilateral facet hypertrophy. No central stenosis. Mild bilateral neural foraminal narrowing. No neural compression. L3-L4: Loss of disc signal. Mild to moderate diffuse disc bulge. Mild bilateral facet hypertrophy. Moderate ligamentum flavum hypertrophy. Mild narrowing of the central canal. Moderate bilateral neural foraminal narrowing. No neural compression. L4-L5: Loss of disc signal. Mild to moderate diffuse disc bulge. Mild bilateral facet hypertrophy. Mild narrowing of the central canal. Mild bilateral neural foraminal narrowing. No neural compression. L5-S1: Loss of disc signal and height. Mild bilateral facet hypertrophy. No central stenosis. No neural foraminal narrowing. No neural compression. IMPRESSION: Multilevel degenerative disc disease. Multilevel facet arthropathy. No severe central canal stenosis. No severe neural foraminal narrowing. No neural compression. Chronic L2 compression fracture. Dictated by: Cheryle Shipley MD, PhD on 11/26/2023 at 9:34 Approved by: Cheryle Shipley MD, PhD on 11/26/2023 at 9:40
== END ==
LOC: MRI 15:22
PROVIDERS: PCP Internal Medicine; Referring Provider Physical Medicine & Rehabilitation; Visit Provider Physical Medicine & Rehabilitation
DX: M41.9 Scoliosis, unspecified (principal); S32.000A Wedge compression fracture of unspecified lumbar vertebra, initial encounter for closed fracture; M48.062 Spinal stenosis, lumbar region with neurogenic claudication; M47.816 Spondylosis without myelopathy or radiculopathy, lumbar region; M47.817 Spondylosis without myelopathy or radiculopathy, lumbosacral region; M51.36 Other intervertebral disc degeneration, lumbar region; M51.34 Other intervertebral disc degeneration, thoracic region; M47.814 Spondylosis without myelopathy or radiculopathy, thoracic region; M51.24 Other intervertebral disc displacement, thoracic region
CPT/HCPCS: 72146; 72148

== ENCOUNTER → 2023-12-12 07:31 | Outpatient (CLI) | payer MEDICARE, SELFPAY ==
[2023-12-12 08:10] LABS: Appearance Urine UA CLEAR; Bilirubin Urine UA NEGATIVE (NEGATIVE); Color Urine UA YELLOW; Glucose Urine UA NEGATIVE (Negative); Ketones Urine UA NEGATIVE (NEGATIVE); Leukocyte Esterase Urine UA TRACE (NEGATIVE); Nitrite Urine UA NEGATIVE (Negative); Occult Blood Urine UA NEGATIVE (Negative); Protein Urine UA NEGATIVE (Negative); Urobilinogen Urine UA 0.2 E.U./dL (0.2)
[2023-12-12 08:12] LABS: pH Urine UA 5.5 (4.5-8.0)
[2023-12-12 08:13] LABS: Urine Volume 10mL (spun)
[2023-12-12 08:14] LABS: Bacteria Urine None Seen; Culture Indicated Urine Specimen Cultured; RBC Urine None Seen (0-5/HPF); Squamous Epithelial Cell Urine 0-1 /HPF (0-5/HPF); WBC Urine 1-5/HPF (0-5/HPF)
== END ==
PROVIDERS: PCP Internal Medicine; Visit Provider Nurse Practitioner Family
DX: N30.00 Acute cystitis without hematuria (principal); N95.2 Postmenopausal atrophic vaginitis; R30.0 Dysuria
CPT/HCPCS: 81001; 87086; 87210

== ENCOUNTER → 2024-04-17 07:50 | Outpatient (CLI) | payer MEDICARE, SELFPAY ==
--- NOTE | 2024-04-17 07:51 | DI.US.S_ITS ---
PROCEDURE: US ABDOMEN LIMITED INDICATIONS: Right upper quadrant pain TECHNIQUE: Real-time focused scanning was performed of the abdomen, with image documentation. COMPARISON: None. FINDINGS: Liver measures 17 cm. Cholelithiasis. No sonographic Marrero sign. No significant wall thickening. CBD is 6 mm, which is the upper limit of normal. Visualized pancreas unremarkable. IMPRESSION: Cholelithiasis. No sonographic Marrero sign. Dictated by: Octavio Agustin M.D. on 04/17/2024 at 13:59 Approved by: Octavio Agustin M.D. on 04/17/2024 at 13:59
== END ==
LOC: US 07:50
PROVIDERS: PCP Internal Medicine; Referring Provider Physician Assistant; Visit Provider Physician Assistant
DX: K80.20 Calculus of gallbladder without cholecystitis without obstruction (principal); R10.11 Right upper quadrant pain
CPT/HCPCS: 76705

== ENCOUNTER → 2024-08-08 15:12 | Outpatient (CLI) | payer MEDICARE, SELFPAY ==
--- NOTE | 2024-08-08 15:13 | DI.MG.S_ITS ---
BILATERAL DIGITAL SCREENING MAMMOGRAM 3D/2D WITH CAD: 08/08/2024 CLINICAL: Routine screening. Comparison is made to exams dated: 12/14/2022 mammogram, 11/16/2020 mammogram, and 08/05/2018 mammogram - [facility]. The breasts are heterogeneously dense, which may obscure small masses (category c / 51-75% glandular tissue). Current study was also evaluated with a Computer Aided Detection (CAD) system. There are benign vascular calcifications in both breasts. No significant masses, calcifications, or other findings are seen in either breast. There has been no significant interval change. IMPRESSION: BENIGN There is no mammographic evidence of malignancy. A 1 year screening mammogram is recommended. Based on the Tyrer Cuzick model (a risk assessment model) the patient's lifetime risk is 4.6% and her 10 year risk is 4.1%. According to the ACR, ACS, and NCCN guidelines, an annual breast MRI exam along with mammogram is recommended if the patient's lifetime risk is 20% or greater. This exam was interpreted at Station ID: [id number]. NOTE: For mammograms, a report in lay terms will be sent to the patient. Approximately 15% of breast malignancies will not be visualized mammographically. In the management of a palpable breast mass, a negative mammogram must not discourage biopsy of a clinically suspicious lesion. Electronically Signed By: Edmond roper/sae:08/11/2024 06:34:45 letter sent: Normal Exam ACR BI-RADS Category 2: Benign
== END ==
PROVIDERS: PCP Family Medicine; Referring Provider Family Medicine; Visit Provider Family Medicine
DX: Z12.31 Encounter for screening mammogram for malignant neoplasm of breast (principal); R92.333 Mammographic heterogeneous density, bilateral breasts
CPT/HCPCS: 77063; 77067

== ENCOUNTER 2024-10-09 11:16 | Emergency (ER) | payer MEDICARE, SELFPAY ==
[2024-10-09] VITALS (8 sets, daily range): BP systolic 115–137; BP diastolic 58–67; PULSE 72–90; RESP 17; TEMP 36.4; O2SAT 98–100; BMI 29.8
[2024-10-09 11:43] LABS: Add Manual Diff / Slide Review NO; Basophils Absolute Auto 0 /uL (0-100); Basophils Percent Auto 0.4 % (0-2); Eosinophils Absolute Auto 0 /uL (0-450); Eosinophils Percent Auto 0.2 % (2-4); Lymphocytes Absolute Auto 300 /uL (1100-4500); Lymphocytes Percent Auto 4.4 % (25-40); Mean Corpuscular HGB Conc 32.5 % (30-36); Mean Corpuscular Hemoglobin 27.4 PG (26-34); Mean Corpuscular Volume 84.2 fL (80-100); Monocytes Absolute Auto 200 /uL (0-900); Monocytes Percent Auto 2.4 % (3-14); Neutrophils Absolute Auto 7200 /uL (1500-7000); Neutrophils Percent Auto 92.6 % (50-75); Platelet Count 166 X10^3/uL (150-400); Red Cell Distribution Width 17.1 % (11.6-14.8); White Blood Cell Count 7.8 X10^3/uL (4.5-11.0)
[2024-10-09] MEDS: ONDANSETRON 4 MG/2 ML INJ IV (11:48)
--- NOTE | 2024-10-09 11:52 | ED.NAVMDI ---
HPI - Nausea/Vomiting/Diarrhea General Chief complaint: Nausea/Vomiting/Diarrhea Stated complaint: Throwing up , Time Seen by Provider: 10/09/24 11:39 Source: patient Mode of arrival: Ambulatory History of Present Illness HPI Narrative: Patient is a 74-year-old female who is here for evaluation of several hours of loose stools and dry heaving and vomiting. She was have history of reflux disease. No recent antibiotics. No recent travel. No known sick contacts. Reports some back and side pain. Has not tried anything for symptoms prior to arrival. Related Data Home Medications Medication Instructions Recorded Confirmed cholecalciferol (vitamin D3) 50 50 mcg PO DAILY 11/21/23 09/18/24 mcg (2,000 unit) capsule estradiol 0.01% (0.1 mg/gram) 1 appful vaginal DAILY 11/21/23 09/18/24 vaginal cream rosuvastatin 10 mg tablet 10 mg PO ONCE PM 11/21/23 10/09/24 valsartan 40 mg tablet 40 mg PO DAILY 11/21/23 10/09/24 Previous Rx's Medication Instructions Recorded methocarbamol 500 mg tablet 500 mg PO BID PRN muscle spasm #20 09/18/24 tabs ondansetron 4 mg disintegrating 4 mg PO Q6H PRN nausea and 10/09/24 tablet vomiting #14 tabs Allergies Allergy/AdvReac Type Severity Reaction Status Date / Time adhesive Allergy Mild Verified 10/09/24 11:34 cephalexin [From KEFLEX] Allergy Unknown vomit Verified 10/09/24 11:34 Sulfa (Sulfonamide Allergy Unknown Rash Verified 10/09/24 11:34 Antibiotics) [SULFA (SULFONAMIDE ANTIBIOTICS)] Review of Systems Review of Systems ROS Unobtainable: All systems reviewed & are unremarkable except as noted in HPI and below Patient History Medical History Wears glasses Osteopenia (~2009) Chronic back pain (~2016) Mumps (~1957) Measles (~1954) Chicken pox (~1959) Herpes (~2018) Dyspareunia (~2021) Mitral valve prolapse (~2022) Osteoarthritis, hand (~2004) Facet arthropathy, lumbar Spinal stenosis, lumbar region with neurogenic claudication Scoliosis (~2023) Lumbar compression fracture Diverticulosis (~2016) Cough Urethral caruncle Surgical History (Updated 08/01/24 @ 18:24 by Adenike Chaidez) Anesthesia H/O right knee surgery (~2015) History of knee replacement (03/09/15) Family History (Updated 08/01/24 @ 18:25 by Adenike Chaidez) Father Hypertension Hyperlipidemia Stroke Grandmother No problems noted. Mother Infection History of heart disease Hyperlipidemia Grandfather Heart problem Grandmother Heart problem Family/Other Surgical complication Family/Other Cancer Family/Other Cancer Family/Other Cancer Family/Other No problems noted. Social History household members: spouse Smoking Status: Never smoker Smoking Status: Never smoker alcohol intake frequency: 0-2 drinks per day Exam Initial Vital Signs Initial Vital Signs: Vital Signs Pulse Rate 90 10/09/24 11:23 Blood Pressure 132/63 10/09/24 11:23 Pulse Oximetry 98 10/09/24 11:23 Const General: cooperative and No ill appearing HENMT Head: normal to inspection and normocephalic Resp Effort & Inspection: normal respiratory effort Auscultation: clear to auscultation bilaterally Cardio Rate: regular rate Rhythm: regular rhythm GI Inspection: normal to inspection and non-distended Palpation: soft and No tender Neuro General: patient alert, patient awake and moves all extremities Course Orders Ordered: ED Orders 10/09/24 11:36 Complete Blood Count AUTO DIFF Stat Comprehensive Metabolic Panel Stat Lipase Stat 10/09/24 11:39 Complete Blood Count AUTO DIFF Stat Comprehensive Metabolic Panel Stat Lipase Stat 10/09/24 13:49 Urinalysis and Microscopic Stat Ondansetron HCl (Ondansetron 4 Mg/2 Ml Inj) 4 mg IV NOW PRN PRN Reason: Nausea And Vomiting Last Admin: 10/09/24 11:48 Dose: 4 mg Documented By: ART Ondansetron HCl (Ondansetron 4 Mg Odt) 4 mg PO NOW PRN PRN Reason: Nausea And Vomiting Discontinued Medications Pantoprazole Sodium (Pantoprazole 40 Mg Vial) 40 mg IV NOW ONE Stop: 10/09/24 11:54 Last Admin: 10/09/24 12:16 Dose: 40 mg Documented By: ART Vital Signs Vital signs: Vital Signs - 8 hr 10/09/24 11:23 10/09/24 11:23 10/09/24 11:27 Temperature 97.6 F Pulse Rate 90 80 Respiratory Rate 17 Blood Pressure 132/63 132/63 Pulse Oximetry 98 100 Oxygen Delivery Method Room Air 10/09/24 11:30 10/09/24 11:30 10/09/24 12:00 Temperature Pulse Rate 79 90 Respiratory Rate Blood Pressure 133/67 Pulse Oximetry 100 100 Oxygen Delivery Method Room Air 10/09/24 12:00 Temperature Pulse Rate Respiratory Rate Blood Pressure 137/65 Pulse Oximetry Oxygen Delivery Method MDM - Nausea/Vomiting/Diarrhea Lab Data 10/09/24 11:36 10/09/24 11:36 Labs: Lab Results 10/09/24 10/09/24 Range/Units 11:36 13:49 WBC 7.8 (4.5-11.0) X10^3/uL RBC 4.40 (4.0-5.2) X10^6/uL Hgb 12.0 (12.0-16.0) g/dL Hct 37.0 (36-46) % MCV 84.2 (80-100) fL MCH 27.4 (26-34) PG MCHC 32.5 (30-36) % RDW 17.1 H (11.6-14.8) % Plt Count 166 (150-400) X10^3/uL Neut % (Auto) 92.6 H (50-75) % Lymph % (Auto) 4.4 L (25-40) % [place] % (Auto) 2.4 L (3-14) % Eos % (Auto) 0.2 L (2-4) % Baso % (Auto) 0.4 (0-2) % Neut # (Auto) 7200 H (1864-9390) /uL Lymph # (Auto) 300 L (1308-9237) /uL [place]imes # (Auto) 200 (0-900) /uL Eos # (Auto) 0 (0-450) /uL Baso # (Auto) 0 (0-100) /uL Sodium 132 L (137-145) mmol/L Potassium 4.2 (3.4-5.1) mmol/L Chloride 101 (98-107) mmol/L Carbon Dioxide 26 (22-32) mmol/L BUN 24 H (7-17) mg/dL Creatinine 0.70 (0.52-1.04) mg/dL Estimated GFR > 60 (>60) mL/min BUN/Creatinine Ratio 34.3 H (6-22) Glucose 127 H (80-110) mg/dL Calcium 8.5 (8.4-10.2) mg/dL Total Bilirubin 0.7 (0.2-1.3) mg/dL AST 37 H (14-36) IU/L ALT 22 (<35) IU/L Alkaline Phosphatase 67 (38-126) U/L Total Protein 7.2 (6.3-8.2) g/dL Albumin 4.1 (3.5-5.0) g/dL Globulin 3.1 (1.7-4.1) g/dL Albumin/Globulin Ratio 1.3 (1.0-2.8) Lipase 817 H (23-300) U/L Urine Color Yellow Urine Appearance Clear Urine pH 6.5 (4.5-8.0) Ur Specific [place] 1.010 (1.000-1.035) Urine Protein Negative (Negative) Urine Glucose (UA) Negative (Negative) g/dL Urine Ketones 2+ H (NEGATIVE) Urine Occult Blood Negative (Negative) Urine Nitrate Negative (Negative) Urine Bilirubin Negative (NEGATIVE) Urine Urobilinogen 0.2 (0.2) E.U./dL Ur Leukocyte Esterase Negative (NEGATIVE) Urine Dip Bedside Urine Glucose Negative Bedside Urine Bilirubin - Negative Bedside Urine Ketone ++ 40 Urine Specific [place] 1.015 Bedside Urine Occult Blood - Negative Bedside Urine pH 6.0 Bedside Urine Protein - Negative Bedside Urine Urobilinogen - Negative Bedside Urine Nitrite - Negative Bedside Urine Leukocytes +/- 15 Esterase MDM Narrative Medical decision making narrative: Patient reports improvement of symptoms after the Zofran. Afebrile. No leukocytosis. She reports the burning sensation in her abdomen has improved after the Protonix. No indication for antibiotics. Given her exam I do feel that we can hold on any further imaging studies. Will discharge home with nausea medication. She was given return precautions. She expressed understanding and agreement. Discharge Plan Departure Patient Disposition: Home Clinical Impression: Nausea Instructions: Nausea and Vomiting-Adult Activity Restrictions/Additional Instructions: I do recommend a bland diet for the next couple days. Use the nausea medication as needed. Contact your primary doctor for a follow-up. Return to the emergency department for new or worsening symptoms. Prescriptions: New ondansetron 4 mg tablet,disintegrating 4 mg PO Q6H PRN (Reason: nausea and vomiting) Qty: 14 0RF No Action methocarbamol 500 mg tablet 500 mg PO BID PRN (Reason: muscle spasm) Qty: 20 0RF estradiol 0.01 % (0.1 mg/gram) cream 1 appful vaginal DAILY valsartan 40 mg tablet 40 mg PO DAILY rosuvastatin 10 mg tablet 10 mg PO ONCE PM cholecalciferol (vitamin D3) 50 mcg (2,000 unit) capsule 50 mcg PO DAILY Referrals: Octavia Raphael DO [Primary Care Provider] - Stand Alone Forms: Patient Portal/API/Survey
[2024-10-09 11:55] LABS: Alanine Aminotransferase 22 IU/L (<35); Albumin 4.1 g/dL (3.5-5.0); Albumin Globulin Ratio 1.3 (1.0-2.8); Alkaline Phosphatase 67 U/L (38-126); Aspartate Aminotransferase 37 IU/L (14-36); BUN Creatinine Ratio 34.3 (6-22); Bilirubin Total 0.7 mg/dL (0.2-1.3); Blood Urea Nitrogen 24 mg/dL (7-17); Calcium 8.5 mg/dL (8.4-10.2); Carbon Dioxide 26 mmol/L (22-32); Chloride 101 mmol/L (98-107); Estimated Glomerular Filt Rate > 60 mL/min (>60); Globulin 3.1 g/dL (1.7-4.1); Glucose 127 mg/dL (80-110); HEMOLYSIS 43 (0-50); Lipase 817 U/L (23-300); Potassium 4.2 mmol/L (3.4-5.1); Sodium 132 mmol/L (137-145); Total Protein 7.2 g/dL (6.3-8.2)
[2024-10-09] MEDS: PANTOPRAZOLE 40 MG VIAL IV (12:16)
[2024-10-09 13:58] LABS: Appearance Urine UA CLEAR; Bilirubin Urine UA NEGATIVE (NEGATIVE); Color Urine UA YELLOW; Glucose Urine UA NEGATIVE (Negative); Ketones Urine UA 2+ (NEGATIVE); Leukocyte Esterase Urine UA NEGATIVE (NEGATIVE); Nitrite Urine UA NEGATIVE (Negative); Occult Blood Urine UA NEGATIVE (Negative); Protein Urine UA NEGATIVE (Negative); Urobilinogen Urine UA 0.2 E.U./dL (0.2); pH Urine UA 6.5 (4.5-8.0)
[2024-10-09 14:07] LABS: Bacteria Urine Occasional (0-1); Culture Indicated Urine Cult Not Indicated; RBC Urine 0-1/HPF (0-5/HPF); Squamous Epithelial Cell Urine 0-1 /HPF (0-5/HPF); Urine Volume 10mL (spun); WBC Urine 0-1/HPF (0-5/HPF)
== END 2024-10-09 14:13 | disposition home or self-care (01) ==
PROVIDERS: Emergency Provider Emergency Medicine; PCP Family Medicine
DX: R11.2 Nausea with vomiting, unspecified (principal)
CPT/HCPCS: 36415; 80053; 81001; 81003; 83690; 85025; 96374; 96375; 99284; J2405; J2470

== ENCOUNTER → 2025-04-07 08:52 | Outpatient (CLI) | payer MEDICARE, SELFPAY ==
--- NOTE | 2025-04-07 08:54 | DI.RAD.S_ITS ---
PROCEDURE: XR FOOT LT MIN 3V INDICATIONS: ongoing left foot pain TECHNIQUE: 3 views of the foot were acquired. COMPARISON: None. FINDINGS: Bones: Hardware within the distal 1st metatarsal and within the 1st proximal phalanx without evidence of complication. No fractures or dislocations. No suspicious bony lesions. Soft tissues: No tibiotalar joint effusion. Achilles tendon appears normal. IMPRESSION: No acute bony abnormality or complication. Dictated by: Francisco Talamantes M.D. on 04/08/2025 at 4:10 Approved by: Francisco Talamantes M.D. on 04/08/2025 at 4:13
== END ==
PROVIDERS: PCP Family Medicine; Referring Provider Family Medicine; Visit Provider Family Medicine
DX: M79.672 Pain in left foot (principal); M19.90 Unspecified osteoarthritis, unspecified site; M79.671 Pain in right foot
CPT/HCPCS: 73630

== ENCOUNTER → 2025-08-11 15:46 | Outpatient (CLI) | payer MEDICARE, SELFPAY | PROVIDERS: PCP Family Medicine; Visit Provider Physician Assistant | DX: N95.0 Postmenopausal bleeding (principal) | CPT/HCPCS: 87210 ==

== ENCOUNTER → 2025-08-20 14:55 | Outpatient (CLI) | payer MEDICARE, SELFPAY ==
--- NOTE | 2025-08-20 14:55 | DI.US.S_ITS ---
PROCEDURE: US PELVIC COMPLETE INDICATIONS: Vaginal bleeding - post menopausal TECHNIQUE: Real-time scanning was performed of the pelvic organs, with image documentation. Additional endovaginal scanning was necessary due to incomplete visualization of the adnexal and endometrial structures by transabdominal scanning. COMPARISON: None. FINDINGS: Uterus: 6.6 x 2.5 x 3.5 cm. The endometrium measures 3 mm. Possible cervical lesion with a vascular stalk measuring 1 x 1 cm is seen. Small volume surrounding fluid. Ovaries: Nonenlarged right ovary measuring 1 mL. Left ovary was not seen. Other: No pathologic free abdominal or pelvic fluid. IMPRESSION: Possible cervical lesion measuring 1 cm. This could represent a polyp versus other benign or malignant etiologies. In the setting of postmenopausal bleeding, consider direct visualization/sampling. Endometrium is nonthickened at 3 mm. Dictated by: Octavio Agustin M.D. on 08/21/2025 at 7:11 Approved by: Octavio Agustin M.D. on 08/21/2025 at 7:12
== END ==
LOC: US 14:55
PROVIDERS: PCP Family Medicine; Referring Provider Physician Assistant; Visit Provider Physician Assistant
DX: N95.0 Postmenopausal bleeding (principal)
CPT/HCPCS: 76830; 76856

== ENCOUNTER → 2025-09-24 13:47 | Outpatient (CLI) | payer MEDICARE, SELFPAY ==
[2025-09-24 15:11] LABS: Bilirubin Urine UA NEGATIVE (NEGATIVE); Glucose Urine UA NEGATIVE (Negative); Ketones Urine UA NEGATIVE (NEGATIVE); Leukocyte Esterase Urine UA 3+ (NEGATIVE); Nitrite Urine UA POSITIVE (Negative); Occult Blood Urine UA 2+ (Negative); Protein Urine UA 1+ (Negative); Specific Gravity Urine UA 1.010 (1.000-1.035); Urobilinogen Urine UA 0.2 E.U./dL (0.2)
[2025-09-24 15:12] LABS: Appearance Urine UA CLOUDY; Color Urine UA Dark Yellow; pH Urine UA 6.5 (4.5-8.0)
[2025-09-24 15:25] LABS: Culture Indicated Urine Specimen Cultured
== END ==
PROVIDERS: PCP Family Medicine; Referring Provider Family Medicine; Visit Provider Family Medicine
DX: R30.0 Dysuria (principal)
CPT/HCPCS: 81001; 87077; 87086